=== PATIENT | male | born 1980 | race Caucasian/White ===

== ENCOUNTER 2019-08-17 14:46 | Emergency (ER) | payer MEDICAID ==
[~2019-08-17] VITALS: Ht 188 cm; Wt 76.0 kg
[2019-08-17 14:49] VITALS: BP 158/97
[2019-08-17] MEDS ORDERED: proparacaine 0.5% ophthalmic drops 15ml EACHEYE ONE (16:50)
[2019-08-17] MEDS ORDERED: CIPR2.5D18 LEFTEYE (17:43)
== END 2019-08-17 17:50 | disposition home or self-care (01) ==
LOC: ER 14:47
DX: H57.12 Ocular pain, left eye (principal); Z79.899 Other long term (current) drug therapy
CPT/HCPCS: 99283

== ENCOUNTER 2020-04-20 16:52 | Inpatient (IN) | payer MEDICAID ==
[~2020-04-20] VITALS: Ht 185.4 cm; Wt 89.3 kg
[~2020-04-20 16:52] MED LIST: NORepinephrine 1 mg/ml inj IV ONE; etomidate 2mg/ml inj. ONE; rocuronium 10mg/ml inj IV ONE
[2020-04-20] MEDS ORDERED: normal saline 1000ML IV soln IVB ONE (17:10)
[2020-04-20] MEDS ORDERED: piperacillin/tazo 3.375gm/50ml 50 ML IV ONE (17:10)
--- NOTE | 2020-04-20 17:22 | NUR ---
COOLINGBLANKET FROM ICU ON PT, ICE PACKS TO GROIN AND AXILLA.
--- NOTE | 2020-04-20 17:23 | NUR ---
1656-20 ETOMADATE, 1700-100 ROCC, 8.0 ETT, 26 AT THE TEETH. VENT SETTINGS TV 450, 100%, RATE 18, PEEP 5. LEVOPHED STARTED AT 1715 AT 14.51ML/HR
[2020-04-20 17:31] LABS: ABG HCO3 17.4 mmol/L (22.0-26.0); ABG OXYGEN SATURATION 99.6 % (94-97); ABG PCO2 (T) 47.6 mmHg (35.0-48.0); ALLEN'S TEST POSITIVE; FCOHb 0.5 % (0.0-3.9); FMetHb 0.4 % (0.0-1.5); FO2Hb 98.7 % (94-97); PATIENT TEMPERATURE 41.2; PEEP 5 cm H2O; RESPIRATORY RATE 18 b/min; TIDAL VOLUME 450 mL; TOTAL HEMOGLOBIN 14.8 G/dl (14.0-18.0)
[2020-04-20 17:33] LABS: HEMATOCRIT 47.4 % (42.0-52.0); MONOCYTES # (AUTO) 0.1 X10'3 (0-0.9); NEUTROPHILS # (AUTO) 1.9 X10'3 (1.8-7.7)
[2020-04-20 17:33] LABS: CLARITY,URINE SLIGHTLY CLOUDY (Clear); COLOR,URINE YELLOW (Yellow); GLUCOSE, URINE NEGATIVE (Neg); KETONES,URINE NEGATIVE (Neg); LEUKOCYTE ESTERASE ,URINE NEGATIVE (Neg); NITRITES, URINE NEGATIVE (Neg); OCCULT BLOOD,URINE NEGATIVE (Neg); PH,URINE 6.5 (4.8-8.0); PROTEIN,URINE 30 mg/dl (Neg); UA COLLECTION TYPE FOLEY CATH; UROBILINOGEN,URINE 0.2 E.U/dL (0.2-1.0)
[2020-04-20 17:35] LABS: BASOPHILS % (AUTO) 0.5 % (0-1); EOSINOPHILS # (AUTO) 0.1 X10'3 (0-0.9); EOSINOPHILS % (AUTO) 1.1 % (0-6); HEMOGLOBIN 16.3 g/dl (14.0-17.9); LYMPHOCYTES # (AUTO) 2.9 X10'3 (1.1-4.8); MEAN CORPUSCULAR HEMOGLOBIN 31.6 PG (27.0-31.0); MEAN CORPUSCULAR HGB CONC 34.3 g/dL (33.0-36.5); MEAN CORPUSCULAR VOLUME 91.9 FL (78-98); MEAN PLATELET VOLUME 7.2 FL (7.4-10.4); MONOCYTES % (AUTO) 2.3 % (2-12); NEUTROPHILS % (AUTO) 38.1 % (42-75); PLATELET COUNT 304 X10'3 (140-440); RED BLOOD COUNT 5.16 X10'6 (4.70-6.10); RED CELL DISTRIBUTION WIDTH 13.7 % (11.5-14.5)
[2020-04-20 17:39] LABS: URINE AMPHETAMINE SCREEN POSITIVE (Neg); URINE BARBITUATE SCREEN NEGATIVE (Neg); URINE BENZODIAZEPINES SCREEN NEGATIVE (Neg); URINE CANNABINOID SCREEN POSITIVE (Neg); URINE COCAINE SCREEN NEGATIVE (Neg); URINE METHADONE SCREEN NEGATIVE (Neg); URINE OPIATE SCREEN NEGATIVE (Neg); URINE PHENCYCLIDINE SCREEN NEGATIVE (Neg)
[2020-04-20 17:45] LABS: ALANINE AMINOTRANSFERASE 22 U/L (12-78); ALBUMIN 4.3 G/DL (3.4-5.0); ALKALINE PHOSPHATASE 112 IU/L (46-116); ANION GAP 13 (8-16); ASPARTATE AMINO TRANSFERASE 56 U/L (10-37); BILIRUBIN,TOTAL 0.3 MG/DL (0.1-1.0); BLOOD UREA NITROGEN 17 MG/DL (7-18); BUN/CREATININE RATIO 8.6 (5.4-32.0); CALCIUM 9.4 MG/DL (8.5-10.1); CHLORIDE 107 MMOL/L (99-107); CREATININE 1.98 MG/DL (0.60-1.10); GLUCOSE 80 MG/DL (70-104); POTASSIUM 5.9 MMOL/L (3.5-5.1); SODIUM 143 MMOL/L (135-145); TOTAL CARBON DIOXIDE 22.6 MMOL/L (24-32); TOTAL PROTEIN 8.7 G/DL (6.4-8.2); eGFR 38 ML/MIN
[2020-04-20 17:48] LABS: WBC,URINE 0-4 /HPF (0-4)
[2020-04-20 17:49] LABS: ETHANOL < 0.010 GM/DL (0.0-0.010); TROPONIN I 0.31 NG/ML (0.0-0.05)
[2020-04-20 17:50] LABS: AMORPHOUS URATES 1+; BACTERIA,URINE FEW /HPF (Neg); MUCUS STRANDS FEW /LPF (Neg); SQUAMOUS EPITHELIAL CELL,UR FEW /LPF (FEW); TRANSITIONAL EPI CELLS,URINE FEW /HPF; WBC CLUMPS,URINE FEW /HPF (NEGATIVE)
[2020-04-20] MEDS: NORepinephrine 8mg/ 250ml NS 250 ML IV SCH (17:52)
--- NOTE | 2020-04-20 18:08 | NUR ---
NOTED GASTRIC CONTENTS THROUGH NGT IN SUCTION CANISTER @150ML OF RED WINE COLOR RETURN. MD NOTIFIED. ORDERS TO COLD SALINE LAVAGE THROUGH NGT.
[2020-04-20] MEDS ORDERED: calcium chloride 100 MG/1 ML inj IV ONE (18:25)
[2020-04-20] MEDS: FENTANYL-0.9 % NACL/PF 100 ML IV PRN (18:33)
--- NOTE | 2020-04-20 18:36 | NUR ---
YAZAN CALLED PHONE NUMBER IS [phone]
[2020-04-20] MEDS: midazolam 100mg in NS 100ml 100 ML IV PRN (18:37)
[2020-04-20 18:39] LABS: PARTIAL THROMBOPLASTIN TIME 40 SECONDS (22-32)
[2020-04-20] MEDS ORDERED: ipratropium/albuterol 3ml nebule NEB PRN (18:40)
[2020-04-20] MEDS ORDERED: Neutra Phos packet PO PRN (18:40)
[2020-04-20] MEDS ORDERED: bisacodyl 10mg suppository rectal RC PRN (18:40)
[2020-04-20] MEDS ORDERED: morphine 2 MG/ML inj. syringe IV PRN (18:40)
[2020-04-20] MEDS ORDERED: magnesium Cl slow-release 64mg tablet PO PRN (18:40)
[2020-04-20] MEDS ORDERED: magnesium 2GM in 50ml NS 50 ML IV PRN (18:40)
[2020-04-20] MEDS ORDERED: sodium phosphate inj. 15 MMOL in dextrose 5%-water 250 ML IV PRN (18:40)
[2020-04-20] MEDS ORDERED: LIDOcaine 2% 10ml TOPICAL JELLY (Urojet) TP ONE (18:40)
[2020-04-20] MEDS ORDERED: ondansetron/PF 4mg/2ml inj IV PRN (18:40)
[2020-04-20] MEDS ORDERED: sodium phosphate inj. 30 MMOL in dextrose 5%-water 250 ML IV PRN (18:40)
[2020-04-20] MEDS ORDERED: potassium Cl 20 mEq SR tablet PO PRN ×2 (18:40)
[2020-04-20] MEDS ORDERED: magnesium hydroxide 30ml (MOM) UD suspension PO PRN (18:40)
[2020-04-20] MEDS ORDERED: acetaminophen 325mg tablet PO PRN ×2 (18:40)
[2020-04-20] MEDS ORDERED: magnesium 4gm in 100ml NS 100 ML IV PRN (18:40)
[2020-04-20] MEDS ORDERED: potassium CL 10mEq/100ml bag 100 ML IV PRN ×2 (18:40)
[2020-04-20 18:43] LABS: TOTAL CELLS COUNTED 100
[2020-04-20 18:45] LABS: HYPERSEGMENTED NEUTROPHILS 2+; PLATELET ESTIMATE NORMAL; SMUDGE CELLS 1+
[2020-04-20] MEDS ORDERED: albuterol 2.5 MG/3 ML nebule CONTNEB STA (18:49)
[2020-04-20] MEDS ORDERED: sodium polystyrene sulfonate 15gm/60ml oral suspension PO ONE (18:50)
--- NOTE | 2020-04-20 18:52 | NUR ---
Pt transported to CT scan via gurney with the primary nurse, respiratory therapist and Radiology transport tank technician.
[2020-04-20] MEDS ORDERED: acetaminophen 325mg/10.15ml oral unit dose solution OGT PRN (18:53)
[2020-04-20] MEDS ORDERED: POTASSIUM BICARB 20meq eff tab 20 MEQ TABLET.EFF PO PRN (18:54)
[2020-04-20] MEDS ORDERED: POTASSIUM BICARB 20meq eff tab 20 MEQ TABLET.EFF OGT PRN ×2 (18:55→18:56)
[2020-04-20] MEDS: dextrose 5%-normal saline 1,000 ML IV SCH (19:15)
--- NOTE | 2020-04-20 19:20 | NUR ---
KAYEXELATE ORDERED PO, PT OG TUBE IS CONTINUALLY SUCTIONING SEROSANGINOUS FLUID. ADRIÁN AWARE AND ORDERED KAYEXELATE RECTALLY
[2020-04-20] MEDS ORDERED: ziprasidone IM 20mg inj **IM only IM ONE (19:25)
[2020-04-20] MEDS ORDERED: LORazepam 2 mg/ml vial IM ONE (19:25)
[2020-04-20] MEDS ORDERED: diphenhydrAMINE 50 mg/ml inj IM ONE (19:25)
--- NOTE | 2020-04-20 19:45 | NUR ---
MICK LANGE VERBAL ORDER TO GIVE KAYEXELATE BY NG TUBE
[2020-04-20] MEDS: heparin, porcine 5000 units/ml vial SQ SCH (20:00)
[2020-04-20] MEDS ORDERED: dantrolene 20mg inj IV ONE (20:00)
--- NOTE | 2020-04-20 20:02 | NUR ---
BG 11, REPEAT BG 20. MICK LANGE AWARE AND ORDERED AMP OF D50, GIVEN STAT
--- NOTE | 2020-04-20 20:04 | NUR ---
PT AROUSED AND HEAVING AND BLOODY FLUIDS IN MOUTH. PT MOUTH SUCTIONED AND NG TUBE PLACED ON LOW INTERMITTENT SUCTION. 75 ML OF BRIGHT RED FLUIDS OUT OF NG.
--- NOTE | 2020-04-20 20:15 | NUR ---
I have received report from Safia MAURICE from ED and had the opportunity to ask questions. Room is set up and ready for PT arrival.
[2020-04-20] MEDS: vancomycin/NS 1 GM ADD-VANTAGE 250 ML IV SCH (20:31)
[2020-04-20 20:34] LABS: AMYLASE 407 U/L (25-115); LDL CHOLESTEROL 134 MG/DL (50-100)
[2020-04-20 21:00] VITALS: BP 147/80
[2020-04-20 22:00] VITALS: BP 115/65
[2020-04-20] MEDS ORDERED: dextrose 50%-water 50ml dispensing syringe IV ONE (22:00)
--- NOTE | 2020-04-20 22:00 | NUR ---
PT arrived to unit @ 2044 vis gurboca raton and transferred to ICU bed and placed on bedside monitor. PT is afebrile with temp of 36.8 after being cooled in ED and given Dantrolene. PT has R-IJ that is oozing, pressure drsg placed. Sommer in place draining ann/grey colored urine to gravity. PT intubated and tolerating settings, O2 sat > 97%. PT has abrasion to LT shoulder and hip as well as a contusion to LT lateral chest, Bilat breath sounds auscultated and no crepitus noted. PT also has a spot on his front upper gums that appears to be bleeding. Bed is locked and low. Bilat soft wrist restraints in place ans secure. Will continue to monitor.
[2020-04-20 22:09] LABS: CREATINE KINASE 6927 U/L (39-308); LIPASE 6482 U/L (73-393)
[2020-04-20 23:00] VITALS: BP 102/48
[2020-04-20 23:31] LABS: BASOPHILS % (AUTO) 0.1 % (0-1); EOSINOPHILS % (AUTO) 0.1 % (0-6); HEMATOCRIT 44.3 % (42.0-52.0); HEMOGLOBIN 14.4 g/dl (14.0-17.9); LYMPHOCYTES # (AUTO) 0.9 X10'3 (1.1-4.8); MEAN CORPUSCULAR HEMOGLOBIN 30.3 PG (27.0-31.0); MEAN CORPUSCULAR HGB CONC 32.6 g/dL (33.0-36.5); MEAN CORPUSCULAR VOLUME 92.9 FL (78-98); MEAN PLATELET VOLUME 7.3 FL (7.4-10.4); MONOCYTES # (AUTO) 1.2 X10'3 (0-0.9); MONOCYTES % (AUTO) 8.4 % (2-12); NEUTROPHILS # (AUTO) 12.5 X10'3 (1.8-7.7); NEUTROPHILS % (AUTO) 85.4 % (42-75); PLATELET COUNT 154 X10'3 (140-440); RED BLOOD COUNT 4.77 X10'6 (4.70-6.10); WHITE BLOOD COUNT 14.7 X10'3 (4.5-11.0)
[2020-04-20 23:47] LABS: ALBUMIN 3.3 G/DL (3.4-5.0); ANION GAP 13 (8-16); BLOOD UREA NITROGEN 28 MG/DL (7-18); BUN/CREATININE RATIO 9.7 (5.4-32.0); CALCIUM 7.7 MG/DL (8.5-10.1); CHLORIDE 109 MMOL/L (99-107); CREATININE 2.89 MG/DL (0.60-1.10); GLUCOSE 121 MG/DL (70-104); POTASSIUM 4.3 MMOL/L (3.5-5.1); SODIUM 141 MMOL/L (135-145); TOTAL CARBON DIOXIDE 19.4 MMOL/L (24-32); eGFR 24 ML/MIN
[2020-04-21] VITALS (23 sets, daily range): BP systolic 80–109; BP diastolic 45–67
[2020-04-21 00:39] LABS: MAGNESIUM 2.3 MG/DL (1.5-2.4); PHOSPHORUS 1.6 MG/DL (2.3-4.5)
[2020-04-21 00:40] LABS: PARTIAL THROMBOPLASTIN TIME 87 SECONDS (22-32)
[2020-04-21 00:45] LABS: OXYGEN SATURATION (MIXED VEN) 78.1 % (60-80); PO2 MIXED VENOUS (TEMP COR) 45.8 mmHg (35-46)
[2020-04-21] MEDS: piperacillin/tazo 3.375gm/50ml 50 ML IV SCH ×3 (00:54→15:43)
--- NOTE | 2020-04-21 00:55 | NUR ---
DEEPALI Rodriguez notified d/t receiving critical PTT of 87. Order received to type ans screen PT as well as repeat coags with AM labs. Will continue to monitor.
[2020-04-21 03:41] LABS: EOSINOPHILS % (AUTO) 0.1 % (0-6); LYMPHOCYTES # (AUTO) 0.4 X10'3 (1.1-4.8); MONOCYTES # (AUTO) 0.8 X10'3 (0-0.9)
[2020-04-21 03:43] LABS: BASOPHILS % (AUTO) 0.1 % (0-1); HEMATOCRIT 44.1 % (42.0-52.0); HEMOGLOBIN 14.5 g/dl (14.0-17.9); MEAN CORPUSCULAR HEMOGLOBIN 30.9 PG (27.0-31.0); MEAN CORPUSCULAR HGB CONC 32.9 g/dL (33.0-36.5); MEAN CORPUSCULAR VOLUME 93.9 FL (78-98); MONOCYTES % (AUTO) 6.9 % (2-12); NEUTROPHILS # (AUTO) 9.8 X10'3 (1.8-7.7); NEUTROPHILS % (AUTO) 88.9 % (42-75); PLATELET COUNT 136 X10'3 (140-440); RED CELL DISTRIBUTION WIDTH 13.9 % (11.5-14.5)
[2020-04-21] MEDS: dextrose 5%-normal saline 1,000 ML IV SCH (03:47)
[2020-04-21 04:06] LABS: ABG BASE EXCESS -11.4 mmol/L (-2.0-2.0); ABG HCO3 14.2 mmol/L (22.0-26.0); ABG OXYGEN SATURATION 98.7 % (94-97); ABG PCO2 (T) 32.8 mmHg (35.0-48.0); ABG PO2 (T) 147.9 mmHg (75.0-100.0); ALLEN'S TEST POSITIVE; FCOHb 0.3 % (0.0-3.9); FMetHb 0.2 % (0.0-1.5); FO2Hb 98.2 % (94-97); PATIENT TEMPERATURE 37.7; PEEP 5 cm H2O; RESPIRATORY RATE 18 b/min; TIDAL VOLUME 450 mL; TOTAL HEMOGLOBIN 15.1 G/dl (14.0-18.0)
[2020-04-21 04:13] LABS: PARTIAL THROMBOPLASTIN TIME 89 SECONDS (22-32)
[2020-04-21 04:14] LABS: ALANINE AMINOTRANSFERASE 168 U/L (12-78); ALBUMIN 3.1 G/DL (3.4-5.0); ALKALINE PHOSPHATASE 118 IU/L (46-116); ANION GAP 13 (8-16); ASPARTATE AMINO TRANSFERASE 803 U/L (10-37); BILIRUBIN,TOTAL 0.5 MG/DL (0.1-1.0); BLOOD UREA NITROGEN 34 MG/DL (7-18); BUN/CREATININE RATIO 9.8 (5.4-32.0); CALCIUM 8.1 MG/DL (8.5-10.1); CHLORIDE 108 MMOL/L (99-107); CREATININE 3.46 MG/DL (0.60-1.10); GLUCOSE 107 MG/DL (70-104); POTASSIUM 3.6 MMOL/L (3.5-5.1); SODIUM 141 MMOL/L (135-145); TOTAL CARBON DIOXIDE 20.2 MMOL/L (24-32); TOTAL PROTEIN 6.1 G/DL (6.4-8.2); eGFR 20 ML/MIN
--- NOTE | 2020-04-21 04:35 | NUR ---
SQUAD BOSS Michael called d/t receiving a critical PTT is 87, lab also stated that they were not able to result PT/INR. PT has been type and screened. Also in formed him of critical Phos of 0.9, informed Mcihael that PT does replacement orders but was instructed not to replace and that he would notify the MD general surgeon. No new orders received at this time. Will continue to monitor.
[2020-04-21 04:41] LABS: PHOSPHORUS 0.9 MG/DL (2.3-4.5)
[2020-04-21] MEDS: NORepinephrine 8mg/ 250ml NS 250 ML IV SCH ×2 (04:56→17:33)
--- NOTE | 2020-04-21 05:20 | NUR ---
Received critical Troponin of 9.48. DEEPALI Rodriguez notified. No new orders received at this time.
[2020-04-21 05:21] LABS: TROPONIN I 9.48 NG/ML (0.0-0.05)
[2020-04-21 05:22] LABS: CREATINE KINASE 23111 U/L (39-308)
[2020-04-21] MEDS: FENTANYL-0.9 % NACL/PF 100 ML IV PRN ×2 (05:57→20:02)
--- NOTE | 2020-04-21 06:39 | NUR ---
Problems reprioritized. Patient report given, questions answered & plan of care reviewed with Laine MAURICE.
[2020-04-21] MEDS: vancomycin/NS 1 GM ADD-VANTAGE 250 ML IV SCH (07:50)
[2020-04-21] MEDS: pantoprazole 40 MG vial IV SCH (07:50)
[2020-04-21] MEDS ORDERED: aspirin 325mg tablet PO ONE (08:55)
[2020-04-21] MEDS ORDERED: heparin 25,000 UNIT/250ml bag 250 ML IV SCH (08:56)
[2020-04-21] MEDS: sodium bicarbonate (8.4%) inj. 150 MEQ in dextrose 5%-water 1,000 ML IV SCH ×2 (08:58→17:33)
[2020-04-21] MEDS ORDERED: heparin 10,000 units/1 ML INJ IV ONE (09:00)
[2020-04-21] MEDS ORDERED: heparin 10,000 units/1 ML INJ IV PRN (09:00)
--- NOTE | 2020-04-21 09:00 | NUR ---
Left moris CHAVIS d/c'd per Dr. Calderon.
[2020-04-21 09:15] LABS: AMYLASE 638 U/L (25-115); LDL CHOLESTEROL 116 MG/DL (50-100)
[2020-04-21] MEDS: heparin, porcine 5000 units/ml vial SQ SCH (09:17)
[2020-04-21] MEDS ORDERED: NO HOME MEDS (09:21)
[2020-04-21 09:34] LABS: LIPASE 6036 U/L (73-393)
[2020-04-21] MEDS: midazolam 100mg in NS 100ml 100 ML IV PRN (09:36)
[2020-04-21] MEDS: acetaminophen 325mg/10.15ml oral unit dose solution OGT PRN (10:38)
--- NOTE | 2020-04-21 12:49 | NUR ---
I have reviewed and agree with all medications administered and interventions performed by [facility] Sussy Tan Addendum: 04/21/20 at 1249 by Sveta Billy RT Amended: Links added.
--- NOTE | 2020-04-21 12:54 | NUR ---
Gave tylenol at 1040 for rising temperature of 38.5, temperature did not correct afterwards, actually grey to 38.6. Cooling blanket placed behind patient, Ventilator heater turned off, ice packs applied to groin, neck, and axilla. Patient temperature slowly reducing. Currently 38.4.
--- NOTE | 2020-04-21 13:15 | NUR ---
Tube feeding consult received. Pt intubated, sedated, on pressors. Admitted with acute respiratory failure, sepsis, KATHERINE all per MD note. discussed at critical care rounds that due to elevated pancreatic enzymes (lipase 6036 and amylase 638) will not start feedings today. Recs for tube feedings available however will hold for now. JUAN J discussed with MD to re-evaluate tomorrow since patient intubated, needing some type of nutrition tomorrow whether it be tube feeding or IV nutrition with TPN. Recommendations for both available in RD note. Pt MD note pt appears cachetic looking. Recommend: 1. IF tube feeding, recommend vital AF at 80 ml/hr will provide 1912 ml volume, 2304 cals, 144 gram protein, 1557 ml water. IF TF prealbumin friday and . 2. IF TPN if unable to provide tube feeding would rec to meet patients needs 3:1 clinimix E 02/22 with 100 ml 20% intralipids at 90 ml/hr would provide 2160 ml total volume, 2015 total cals, 1604 non protein cals, 3.69 mg/kg/min CHO loading. IF TPN, prealbumin and TG q friday and . 3. Daily weights. Addendum: 04/21/20 at [address] Amended: Links added.
--- NOTE | 2020-04-21 18:16 | NUR ---
Per patient's , it's OK to share information with patient's mother in [place].
--- NOTE | 2020-04-21 18:18 | NUR ---
Patient in room CICU 2013. I have received report from KAYLENE Jang and had the opportunity to ask questions and assume patient care.
--- NOTE | 2020-04-21 20:16 | NUR ---
Dmitri Rodriguez NP called re: Blood Glucose 69mg/dl via draw from central line. Orders for Hyper/hypoglycemic protocol given.
[2020-04-21] MEDS ORDERED: dextrose ORAL solution 15 GM/59 ML bottle PO PRN ×2 (20:20)
[2020-04-21] MEDS ORDERED: glucagon, human recombinant 1mg kit SUBCUT PRN (20:20)
[2020-04-21] MEDS: dextrose 50%-water 50ml dispensing syringe IV PRN ×2 (20:30→22:16)
[2020-04-22] VITALS (23 sets, daily range): BP systolic 81–120; BP diastolic 42–72
[2020-04-22] MEDS: piperacillin/tazo 3.375gm/50ml 50 ML IV SCH ×3 (00:28→20:33)
[2020-04-22] MEDS: dextrose 50%-water 50ml dispensing syringe IV PRN (00:35)
--- NOTE | 2020-04-22 00:42 | NUR ---
Dmitri Rodriguez NP called re: blood sugar 64 mg/dl. Repeated doses of D50 throughout shift. Made aware of current fluid order of D5 with sodium Bicarb at 125ml/hr. Order for an additional bag of D10 at rate of 30 ml/hr IV.
[2020-04-22] MEDS ORDERED: sodium chloride inj. 154 MEQ in Dextrose 10%-water IV solution 961.5 ML IV SCH (00:45)
[2020-04-22] MEDS: NORepinephrine 8mg/ 250ml NS 250 ML IV SCH ×2 (01:11→19:42)
[2020-04-22] MEDS: Dextrose 10%-water IV solution 1,000 ML IV SCH (01:11)
[2020-04-22 02:51] LABS: AMYLASE 454 U/L (25-115)
[2020-04-22 03:02] LABS: LIPASE 2528 U/L (73-393)
[2020-04-22] MEDS: sodium bicarbonate (8.4%) inj. 150 MEQ in dextrose 5%-water 1,000 ML IV SCH (03:03)
[2020-04-22 03:09] LABS: ALBUMIN 2.2 G/DL (3.4-5.0); ALBUMIN/GLOBULIN RATIO 0.9 (1.1-1.5); ALKALINE PHOSPHATASE 111 IU/L (46-116); ANION GAP 18 (8-16); BILIRUBIN,TOTAL 1.8 MG/DL (0.1-1.0); BLOOD UREA NITROGEN 51 MG/DL (7-18); BUN/CREATININE RATIO 8.5 (5.4-32.0); CHLORIDE 107 MMOL/L (99-107); CREATININE 6.01 MG/DL (0.60-1.10); GLUCOSE 99 MG/DL (70-104); MAGNESIUM 1.7 MG/DL (1.5-2.4); PHOSPHORUS 7.2 MG/DL (2.3-4.5); POTASSIUM 4.4 MMOL/L (3.5-5.1); SODIUM 145 MMOL/L (135-145); TOTAL CARBON DIOXIDE 20.3 MMOL/L (24-32); TOTAL PROTEIN 4.6 G/DL (6.4-8.2); eGFR 11 ML/MIN
[2020-04-22 03:14] LABS: ALANINE AMINOTRANSFERASE 1139 U/L (12-78)
[2020-04-22 03:34] LABS: ASPARTATE AMINO TRANSFERASE 2972 U/L (10-37)
[2020-04-22 03:41] LABS: CALCIUM 5.7 MG/DL (8.5-10.1)
--- NOTE | 2020-04-22 04:00 | NUR ---
Calcium 5.7. Dmitri Rodriguez NP called. Order for 2 gram Calcium Chloride IVPB. Also made aware of increase in BUN and creatine with decreased urine output. No new orders at this time.
[2020-04-22] MEDS ORDERED: calcium chloride inj. 2,000 MG in normal saline 100ml IV soln 80 ML IV ONE (04:05)
[2020-04-22 04:11] LABS: BASOPHILS % (AUTO) 0.1 % (0-1); EOSINOPHILS % (AUTO) 0 % (0-6); HEMOGLOBIN 14.1 g/dl (14.0-17.9); LYMPHOCYTES # (AUTO) 0.4 X10'3 (1.1-4.8); LYMPHOCYTES % (AUTO) 2.1 % (21-51); MEAN CORPUSCULAR HEMOGLOBIN 30.5 PG (27.0-31.0); MEAN CORPUSCULAR HGB CONC 32.8 g/dL (33.0-36.5); MEAN CORPUSCULAR VOLUME 92.9 FL (78-98); MEAN PLATELET VOLUME 7.8 FL (7.4-10.4); MONOCYTES # (AUTO) 0.2 X10'3 (0-0.9); MONOCYTES % (AUTO) 0.8 % (2-12); NEUTROPHILS # (AUTO) 19.8 X10'3 (1.8-7.7); RED BLOOD COUNT 4.63 X10'6 (4.70-6.10); WHITE BLOOD COUNT 20.4 X10'3 (4.5-11.0)
[2020-04-22 04:18] LABS: PLATELET COUNT 32 X10'3 (140-440)
--- NOTE | 2020-04-22 04:25 | NUR ---
Critical Platelet Count of 32. C. DEEPALI Rodriguez called. Order for repeat Hemogram at 1200 today.
[2020-04-22 05:21] LABS: ABG BASE EXCESS -7.6 mmol/L (-2.0-2.0); ABG HCO3 18.8 mmol/L (22.0-26.0); ABG OXYGEN SATURATION 97.1 % (94-97); ABG PCO2 (T) 40.1 mmHg (35.0-48.0); ABG PO2 (T) 88.1 mmHg (75.0-100.0); ALLEN'S TEST POSITIVE; FCOHb 0.1 % (0.0-3.9); FMetHb 0.2 % (0.0-1.5); FO2Hb 96.8 % (94-97); PATIENT TEMPERATURE 36.3; PEEP 5 cm H2O; RESPIRATORY RATE 18 b/min; TIDAL VOLUME 450 mL; TOTAL HEMOGLOBIN 14.8 G/dl (14.0-18.0)
[2020-04-22 05:47] LABS: PLATELET ESTIMATE DECREASED; TOTAL CELLS COUNTED 100
--- NOTE | 2020-04-22 05:49 | NUR ---
Sedation vacation from 0200 to current time. Patient remains unresponsive. Deep sedation. Throughout shift patient had multiple bowel movements of liquid stool, brown to dark red in color.
--- NOTE | 2020-04-22 06:20 | NUR ---
Problems reprioritized. Patient report given, questions answered & plan of care reviewed with KAYLENE Jang.
[2020-04-22] MEDS ORDERED: vancomycin/NS 1 GM ADD-VANTAGE 250 ML IV PRN (06:50)
[2020-04-22] MEDS: pantoprazole 40 MG vial IV SCH (07:03)
[2020-04-22] MEDS ORDERED: vancomycin/NS 1 GM ADD-VANTAGE 250 ML IV SCH (08:00)
[2020-04-22] MEDS: aspirin 325mg tablet PO SCH (09:44)
[2020-04-22] MEDS ORDERED: epoetin 20,000 units/ml inj IV ONE (10:35)
[2020-04-22] MEDS ORDERED: albumin (human) 25% 100ml IV 100 ML IV PRN (10:35)
[2020-04-22] MEDS ORDERED: heparin 1,000 units/ml 10ml inj HE ONE ×2 (10:40)
[2020-04-22 13:15] LABS: HEMATOCRIT 40.9 % (42.0-52.0); HEMOGLOBIN 13.5 g/dl (14.0-17.9); MEAN CORPUSCULAR HEMOGLOBIN 30.7 PG (27.0-31.0); MEAN CORPUSCULAR HGB CONC 33.1 g/dL (33.0-36.5); MEAN PLATELET VOLUME 9.9 FL (7.4-10.4); RED CELL DISTRIBUTION WIDTH 14.3 % (11.5-14.5); WHITE BLOOD COUNT 19.3 X10'3 (4.5-11.0)
[2020-04-22 13:20] LABS: PLATELET COUNT 33 X10'3 (140-440)
--- NOTE | 2020-04-22 14:46 | NUR ---
F/u: Lipase is trending towards normal limits, down to 2528 today. Noted that pt documented to have received EN during surgeon assistant. D/w RN who reports pt did receive EN over night however once this was observed by day shift EN was turned off and OG tube changed to suctioned. Per RN pt not starting any alternative nutrition at this time. Diet order changed to NPO. Per notes pt to start dialysis. Estimated nutrient needs remain the same as they will provide additional protein needed to meet the demands of dialysis. Will continue to follow closely. Addendum: 04/22/20 at [address] Amended: Links added.
[2020-04-22] MEDS ORDERED: albumin (human) 25% 100 ML IV solution IV ONE (16:20)
--- NOTE | 2020-04-22 18:15 | NUR ---
Patient in room CICU 2012. I have received report from KAYLENE Jang and had the opportunity to ask questions and assume patient care. Patient in room with [employer] field artillery targeting technician at bedside, Dialysis in progress. Patient is unresponsive, intubated and on the ventilator FiO2 30%. Sedation turned off at this time. Fentanyl for pain control infusing per MD orders, Levophed and D10 infusing per MD orders, see IV spread sheet for rate.
[2020-04-22] MEDS: lactobacillus rhamnosus 10,000 MMU CELLS/CAPSULE PO SCH (20:00)
[2020-04-22] MEDS: mineral oil/petrolatum ophthal oint EACHEYE PRN (22:40)
[2020-04-23] VITALS (23 sets, daily range): BP systolic 97–124; BP diastolic 43–68
--- NOTE | 2020-04-23 00:20 | NUR ---
Patient opens eyes to pain, facial grimace present during repositioning and bed bath. Patient does not follow commands or track with his eyes. During log roll to change out linen under patient patient with resistance to upper extremities, increased respiratory rate to the 30's. Versed bolus of 2 mg administered and Versed drip restarted at 2 mg/hr. Patient responded well and appears more comfortable after medication bolus.
[2020-04-23] MEDS: dextrose 50%-water 50ml dispensing syringe IV PRN ×6 (02:12→19:06)
[2020-04-23] MEDS: midazolam 100mg in NS 100ml 100 ML IV PRN (02:32)
--- NOTE | 2020-04-23 02:37 | NUR ---
0200 blood glucose 43 mg/dL. D50 administered. Patient repositioned, during repositioning patient with goose bumps only present on the left side of his body. Patient eyes opened during repositioning, patient with right upward gaze, no tracking present. Patient with slight twitching to left arm noted by nursing staff. 2 mg Versed bolus administered. Re check of Blood glucose, 131mg/dL. will continue to monitor. Patient with continuous infusion of D10 at 30ml/hr per provider order.
[2020-04-23 02:46] LABS: ALANINE AMINOTRANSFERASE 2535 U/L (12-78); ALBUMIN 2.9 G/DL (3.4-5.0); ALKALINE PHOSPHATASE 96 IU/L (46-116); AMYLASE 190 U/L (25-115); ANION GAP 15 (8-16); BILIRUBIN,TOTAL 5.2 MG/DL (0.1-1.0); BLOOD UREA NITROGEN 38 MG/DL (7-18); BUN/CREATININE RATIO 6.7 (5.4-32.0); CALCIUM 6.4 MG/DL (8.5-10.1); CHLORIDE 103 MMOL/L (99-107); CREATININE 5.65 MG/DL (0.60-1.10); LIPASE 782 U/L (73-393); MAGNESIUM 1.5 MG/DL (1.5-2.4); POTASSIUM 4.9 MMOL/L (3.5-5.1); SODIUM 141 MMOL/L (135-145); TOTAL CARBON DIOXIDE 23.1 MMOL/L (24-32); eGFR 11 ML/MIN
[2020-04-23 03:07] LABS: ALBUMIN/GLOBULIN RATIO 2.1 (1.1-1.5); PHOSPHORUS 6.8 MG/DL (2.3-4.5); TOTAL PROTEIN 4.3 G/DL (6.4-8.2)
[2020-04-23 03:14] LABS: BASOPHILS % (AUTO) 0.1 % (0-1); EOSINOPHILS # (AUTO) 0.1 X10'3 (0-0.9); EOSINOPHILS % (AUTO) 0.7 % (0-6); HEMATOCRIT 33.5 % (42.0-52.0); HEMOGLOBIN 11.1 g/dl (14.0-17.9); LYMPHOCYTES # (AUTO) 0.6 X10'3 (1.1-4.8); LYMPHOCYTES % (AUTO) 3.5 % (21-51); MEAN CORPUSCULAR HEMOGLOBIN 30.8 PG (27.0-31.0); MEAN CORPUSCULAR HGB CONC 33.2 g/dL (33.0-36.5); MEAN CORPUSCULAR VOLUME 92.9 FL (78-98); MEAN PLATELET VOLUME 10.1 FL (7.4-10.4); MONOCYTES # (AUTO) 0.2 X10'3 (0-0.9); MONOCYTES % (AUTO) 1.4 % (2-12); NEUTROPHILS # (AUTO) 17.1 X10'3 (1.8-7.7); NEUTROPHILS % (AUTO) 94.3 % (42-75); RED BLOOD COUNT 3.61 X10'6 (4.70-6.10); RED CELL DISTRIBUTION WIDTH 14.4 % (11.5-14.5); WHITE BLOOD COUNT 18.1 X10'3 (4.5-11.0)
[2020-04-23 03:15] LABS: GLUCOSE 49 MG/DL (70-104)
[2020-04-23 03:22] LABS: ASPARTATE AMINO TRANSFERASE 5243 U/L (10-37)
[2020-04-23 03:30] LABS: ABG BASE EXCESS -7.3 mmol/L (-2.0-2.0); ABG HCO3 18.8 mmol/L (22.0-26.0); ABG OXYGEN SATURATION 97.6 % (94-97); ABG PCO2 (T) 38.6 mmHg (35.0-48.0); ABG PO2 (T) 109.7 mmHg (75.0-100.0); ALLEN'S TEST POSITIVE; FCOHb 0.3 % (0.0-3.9); FO2Hb 97.3 % (94-97); PATIENT TEMPERATURE 36.3; PEEP 5 cm H2O; RESPIRATORY RATE 18 b/min; TIDAL VOLUME 450 mL; TOTAL HEMOGLOBIN 11.6 G/dl (14.0-18.0)
[2020-04-23 04:09] LABS: PLATELET COUNT 35 X10'3 (140-440)
[2020-04-23] MEDS: NORepinephrine 8mg/ 250ml NS 250 ML IV SCH ×2 (04:15→14:27)
[2020-04-23] MEDS: FENTANYL-0.9 % NACL/PF 100 ML IV PRN (04:19)
[2020-04-23] MEDS: mineral oil/petrolatum ophthal oint EACHEYE PRN (04:24)
--- NOTE | 2020-04-23 04:30 | NUR ---
Dmitri Rodriguez NP notified of patients critical Platelet count of 35. No new orders. Also notified of patients blood glucose of 43 earlier this morning. Patient currently on D10 W at 30 ml/hr. No new orders at this time. Advised to continue to monitor blood glucose and treat per protocol.
--- NOTE | 2020-04-23 05:50 | NUR ---
Blood glucose reassessed 73 mg/dL.
--- NOTE | 2020-04-23 06:30 | NUR ---
Received report from KAYLENE Mena
--- NOTE | 2020-04-23 06:38 | NUR ---
Problems reprioritized. Patient report given, questions answered & plan of care reviewed with KAYLENE Clifton.
[2020-04-23] MEDS: aspirin 325mg tablet PO SCH (07:46)
[2020-04-23] MEDS: piperacillin/tazo 3.375gm/50ml 50 ML IV SCH ×2 (07:46→20:17)
[2020-04-23] MEDS: lactobacillus rhamnosus 10,000 MMU CELLS/CAPSULE PO SCH ×2 (07:46→20:17)
[2020-04-23] MEDS: Dextrose 10%-water IV solution 1,000 ML IV SCH (07:47)
[2020-04-23] MEDS: pantoprazole 40 MG vial IV SCH (08:00)
[2020-04-23] MEDS ORDERED: vancomycin/NS 1 GM ADD-VANTAGE 250 ML X 1 DOSE IV ONE (09:00)
--- NOTE | 2020-04-23 12:11 | NUR ---
TF Consult: Pt lipase down to 782 and amylase down to 190 w/ Low Glu this AM s/p dex. OGTF to start today per binder stripper machine. MAP 69 this AM. LBM 04/22. EN recs below given pt needs given DX sepsis, meth-induced multi-organ failure, intubation, EF 20%, and on HD for rhabdomyolysis per EMR. Will monitor for tolerance. Consider post-pyloric feeds if pancreatic enzymes increase following EN. Recommend: 1. OGTF using vital AF at 80 ml/hr will provide 1912 ml volume, 2304 cals, 144 gram protein, 1557 ml free water. 2. additional water flush 200ml Q4 3. PALB Q /; Daily weights 4. routine bowel care 5. upon extubation; advance diet as medically indicated to heart healthy Addendum: 04/23/20 at [address] Amended: Links added.
--- NOTE | 2020-04-23 18:20 | NUR ---
Patient in room CICU 2013. I have received report from KAYLENE Clifton and had the opportunity to ask questions and assume patient care.
--- NOTE | 2020-04-23 18:41 | NUR ---
Report given to KAYLENE Mena
--- NOTE | 2020-04-23 19:10 | NUR ---
Patient's called for update. Would like a phone call from the MD to discuss MRI and EEG results. Gave more in formation as to how patient was found down. Per his : he was found down at a neighbors house lodged between the toilet and the tub. Patients denied any recent injuries or fall that she is aware of. She will continue to be the main contact for the family.
--- NOTE | 2020-04-23 19:33 | NUR ---
Dmitri Rodriguez NP notified of patients continued low blood glucose readings. informed that patient has been covered with Dextrose 50% 25 ml twice in the last 2 hours. Patient was started on Tube feeding today and is currently at 20 ml/hr. Goal is 80 ml/hr. ORDER: Increased D10 W to make up the difference of the rate of tube feed goal and step the rate of infusion of D10 down as the tube feeding is increased.
[2020-04-24] VITALS (24 sets, daily range): BP systolic 83–134; BP diastolic 42–71
[2020-04-24] MEDS: NORepinephrine 8mg/ 250ml NS 250 ML IV SCH ×2 (00:05→14:11)
[2020-04-24] MEDS: FENTANYL-0.9 % NACL/PF 100 ML IV PRN (00:06)
--- NOTE | 2020-04-24 00:30 | NUR ---
Tube feed residual 500mL per Tube feeding policy 300 mL returned and Tube feeing was resumed. To be rechecked in one hour.
--- NOTE | 2020-04-24 01:25 | NUR ---
Dmitri Rodriguez NP at bedside. Patient continues to have progressive fine twitching with goosebumps that starts on the left side of patients neck and progresses downward and across to right side. Most of the time the twitching will start on the left side of his body. During these episodes patient has a change of color to white non blanchable skin to his hands, arms, knees and at times his face. The color change appears to go away after muscle twitching episodes stop. This color change is increased during any type of tactile stimuli. Patient with Right upward gaze with eyes bilaterally. Versed boluses being administered as ordered. No new orders at this time.
--- NOTE | 2020-04-24 02:00 | NUR ---
Tube Feed residuals 350 mL, Tube Feeding policy followed.
[2020-04-24] MEDS: dextrose 50%-water 50ml dispensing syringe IV PRN ×3 (02:49→20:43)
[2020-04-24 03:33] LABS: BASOPHILS # (AUTO) 0.1 X10'3 (0-0.2); BASOPHILS % (AUTO) 0.6 % (0-1); EOSINOPHILS # (AUTO) 0.1 X10'3 (0-0.9); EOSINOPHILS % (AUTO) 1.1 % (0-6); HEMATOCRIT 32.7 % (42.0-52.0); HEMOGLOBIN 10.8 g/dl (14.0-17.9); LYMPHOCYTES # (AUTO) 0.6 X10'3 (1.1-4.8); LYMPHOCYTES % (AUTO) 5.1 % (21-51); MEAN CORPUSCULAR VOLUME 93.8 FL (78-98); MEAN PLATELET VOLUME 8.8 FL (7.4-10.4); MONOCYTES # (AUTO) 0.4 X10'3 (0-0.9); MONOCYTES % (AUTO) 3.1 % (2-12); NEUTROPHILS # (AUTO) 10.9 X10'3 (1.8-7.7); NEUTROPHILS % (AUTO) 90.1 % (42-75); RED BLOOD COUNT 3.48 X10'6 (4.70-6.10); RED CELL DISTRIBUTION WIDTH 14.8 % (11.5-14.5); WHITE BLOOD COUNT 12.2 X10'3 (4.5-11.0)
[2020-04-24 03:40] LABS: PLATELET COUNT 35 X10'3 (140-440)
[2020-04-24 03:41] LABS: ABG BASE EXCESS -5.7 mmol/L (-2.0-2.0); ABG HCO3 20.3 mmol/L (22.0-26.0); ABG OXYGEN SATURATION 96.4 % (94-97); ABG PCO2 (T) 41.4 mmHg (35.0-48.0); ABG PO2 (T) 91.9 mmHg (75.0-100.0); ALLEN'S TEST POSITIVE; FCOHb 0.1 % (0.0-3.9); FO2Hb 96.3 % (94-97); PATIENT TEMPERATURE 36.6; PEEP 5 cm H2O; TOTAL HEMOGLOBIN 11.3 G/dl (14.0-18.0)
[2020-04-24 04:01] LABS: ALBUMIN 2.4 G/DL (3.4-5.0); ALKALINE PHOSPHATASE 113 IU/L (46-116); ANION GAP 13 (8-16); BILIRUBIN,TOTAL 7.4 MG/DL (0.1-1.0); BLOOD UREA NITROGEN 56 MG/DL (7-18); BUN/CREATININE RATIO 7.1 (5.4-32.0); CALCIUM 6.3 MG/DL (8.5-10.1); CHLORIDE 101 MMOL/L (99-107); CREATININE 7.94 MG/DL (0.60-1.10); GLUCOSE 66 MG/DL (70-104); MAGNESIUM 1.6 MG/DL (1.5-2.4); POTASSIUM 4.5 MMOL/L (3.5-5.1); PREALBUMIN 12.8 MG/DL (19-36); SODIUM 139 MMOL/L (135-145); TOTAL CARBON DIOXIDE 24.8 MMOL/L (24-32); VANCOMYCIN,RANDOM 26.4 UG/ML; eGFR 8 ML/MIN
[2020-04-24] MEDS ORDERED: gelatin sponge, absorbable (Gelfoam 100) sponge TP ONE (04:40)
[2020-04-24] MEDS: mineral oil/petrolatum ophthal oint EACHEYE SCH ×4 (05:06→19:51)
[2020-04-24 05:35] LABS: ALANINE AMINOTRANSFERASE 2726 U/L (12-78); ALBUMIN/GLOBULIN RATIO 1.4 (1.1-1.5); PHOSPHORUS 7.6 MG/DL (2.3-4.5); TOTAL PROTEIN 4.1 G/DL (6.4-8.2)
[2020-04-24 06:01] LABS: ASPARTATE AMINO TRANSFERASE 3816 U/L (10-37)
--- NOTE | 2020-04-24 06:15 | NUR ---
Problems reprioritized. Patient report given, questions answered & plan of care reviewed with KAYLENE Clifton.
--- NOTE | 2020-04-24 06:40 | NUR ---
Received report from KAYLENE Mena
[2020-04-24] MEDS ORDERED: VANCOMYCIN LEVEL IV ONE (07:30)
[2020-04-24] MEDS: midazolam 100mg in NS 100ml 100 ML IV PRN ×2 (08:15→23:03)
[2020-04-24] MEDS: piperacillin/tazo 3.375gm/50ml 50 ML IV SCH ×2 (08:16→19:51)
[2020-04-24] MEDS: lactobacillus rhamnosus 10,000 MMU CELLS/CAPSULE PO SCH ×2 (08:16→19:51)
[2020-04-24] MEDS: pantoprazole 40 MG vial IV SCH (08:16)
[2020-04-24] MEDS: Dextrose 10%-water IV solution 1,000 ML IV SCH ×2 (08:16→22:35)
[2020-04-24] MEDS: aspirin 325mg tablet PO SCH (08:16)
--- NOTE | 2020-04-24 08:30 | NUR ---
TF residual 560 mL, TF turned off. Increased D10 to 80 mL/hr per doctor's order.
[2020-04-24 08:39] LABS: AMYLASE 128 U/L (25-115); LIPASE 1380 U/L (73-393)
[2020-04-24] MEDS ORDERED: normal saline 1000ml 100 ML IV PRN (08:43)
[2020-04-24] MEDS ORDERED: albumin (human) 25% 100ml IV 100 ML IV PRN (08:45)
[2020-04-24] MEDS ORDERED: heparin 1,000 units/ml 10ml inj HE ONE ×2 (08:50)
--- NOTE | 2020-04-24 18:30 | NUR ---
Patient in room CICU 2013. I have received report from KAYLENE Clifton and had the opportunity to ask questions and assume patient care.
[2020-04-25] VITALS (24 sets, daily range): BP systolic 104–148; BP diastolic 40–76
[2020-04-25] MEDS: mineral oil/petrolatum ophthal oint EACHEYE SCH ×4 (02:36→20:12)
[2020-04-25] MEDS: VANCOMYCIN LEVEL IV SCH (03:00)
[2020-04-25 03:53] LABS: EOSINOPHILS # (AUTO) 0.1 X10'3 (0-0.9); HEMOGLOBIN 10.2 g/dl (14.0-17.9); LYMPHOCYTES # (AUTO) 0.5 X10'3 (1.1-4.8)
[2020-04-25 03:54] LABS: BASOPHILS % (AUTO) 0.7 % (0-1); EOSINOPHILS % (AUTO) 1.9 % (0-6); HEMATOCRIT 30.4 % (42.0-52.0); LYMPHOCYTES % (AUTO) 8.6 % (21-51); MEAN CORPUSCULAR HEMOGLOBIN 31.1 PG (27.0-31.0); MEAN CORPUSCULAR HGB CONC 33.5 g/dL (33.0-36.5); MEAN CORPUSCULAR VOLUME 92.8 FL (78-98); MEAN PLATELET VOLUME 8.8 FL (7.4-10.4); MONOCYTES # (AUTO) 0.4 X10'3 (0-0.9); MONOCYTES % (AUTO) 6.6 % (2-12); NEUTROPHILS # (AUTO) 4.9 X10'3 (1.8-7.7); NEUTROPHILS % (AUTO) 82.2 % (42-75); RED BLOOD COUNT 3.28 X10'6 (4.70-6.10); RED CELL DISTRIBUTION WIDTH 14.4 % (11.5-14.5)
[2020-04-25 03:58] LABS: PLATELET COUNT 35 X10'3 (140-440)
[2020-04-25 04:26] LABS: ALBUMIN 2.1 G/DL (3.4-5.0); ALKALINE PHOSPHATASE 118 IU/L (46-116); AMYLASE 125 U/L (25-115); ANION GAP 10 (8-16); BILIRUBIN,TOTAL 9.8 MG/DL (0.1-1.0); BLOOD UREA NITROGEN 42 MG/DL (7-18); BUN/CREATININE RATIO 6.4 (5.4-32.0); CALCIUM 6.8 MG/DL (8.5-10.1); CHLORIDE 100 MMOL/L (99-107); CREATININE 6.55 MG/DL (0.60-1.10); GLUCOSE 106 MG/DL (70-104); MAGNESIUM 1.9 MG/DL (1.5-2.4); POTASSIUM 4.2 MMOL/L (3.5-5.1); SODIUM 136 MMOL/L (135-145); TOTAL CARBON DIOXIDE 26.4 MMOL/L (24-32); eGFR 10 ML/MIN
[2020-04-25 04:46] LABS: ALANINE AMINOTRANSFERASE 2177 U/L (12-78); ASPARTATE AMINO TRANSFERASE 2348 U/L (10-37); LIPASE 1800 U/L (73-393); PHOSPHORUS 6.1 MG/DL (2.3-4.5)
[2020-04-25 04:49] LABS: ALBUMIN/GLOBULIN RATIO 1.1 (1.1-1.5)
[2020-04-25 05:01] LABS: ABG HCO3 21.8 mmol/L (22.0-26.0); ABG OXYGEN SATURATION 93.6 % (94-97); ABG PCO2 (T) 42.5 mmHg (35.0-48.0); ABG PO2 (T) 76.3 mmHg (75.0-100.0); ALLEN'S TEST POSITIVE; FCOHb 0.3 % (0.0-3.9); FMetHb 0.3 % (0.0-1.5); PEEP 5 cm H2O; RESPIRATORY RATE 18 b/min; TIDAL VOLUME 450 mL; TOTAL HEMOGLOBIN 11.1 G/dl (14.0-18.0)
[2020-04-25] MEDS: piperacillin/tazo 3.375gm/50ml 50 ML IV SCH ×2 (08:23→20:12)
[2020-04-25] MEDS: lactobacillus rhamnosus 10,000 MMU CELLS/CAPSULE PO SCH ×2 (08:24→20:12)
[2020-04-25] MEDS: aspirin 325mg tablet PO SCH (08:24)
[2020-04-25] MEDS: pantoprazole 40 MG vial IV SCH (08:24)
[2020-04-25] MEDS ORDERED: magnesium hydroxide 30ml (MOM) UD suspension OGT PRN (08:35)
[2020-04-25] MEDS ORDERED: dextrose ORAL solution 15 GM/59 ML bottle OGT PRN ×2 (08:50)
[2020-04-25] MEDS: NORepinephrine 8mg/ 250ml NS 250 ML IV SCH (09:54)
[2020-04-25] MEDS: FENTANYL-0.9 % NACL/PF 100 ML IV PRN (09:55)
--- NOTE | 2020-04-25 12:27 | NUR ---
Daniel trigger. Daniel is low, 8, skin is intact. High residuals in the night up to 640 ml, pt having routine bowel movements. Receiving fentanyl. Per RN at rounds pt is unresponsive, fixed pupils, tube feeding now at 20 ml/hr. Not receiving prokinetic, however a prokinetic such as reglan may be contraindicated in the setting of neurological dysfunction. Receiving HD. Recommend: 1. OGTF using vital AF at 80 ml/hr will provide 1912 ml volume, 2304 cals, 144 gram protein, 1557 ml free water. Advance toward goal rate as tolerated. 2. additional water flush 200ml Q4 3. PALB Q /; Daily weights 4. routine bowel care Addendum: 04/25/20 at [address] Amended: Links added.
[2020-04-25] MEDS ORDERED: chlorproMAZINE 25mg tablet OGT ONE (12:30)
--- NOTE | 2020-04-25 18:30 | NUR ---
Patient in room CICU 2013. I have received report from Ying MAURICE, and had the opportunity to ask questions and assume patient care.
[2020-04-25] MEDS: dextrose 50%-water 50ml dispensing syringe IV PRN (20:29)
--- NOTE | 2020-04-25 21:00 | NUR ---
At the 1999 residual check, PT's gastric residuals were 725ml. 300ml returned and 425 discarded per policy. TF is on hold for 2 hrs and will recheck residuals per policy. PT also had a critical blood sugar of 44 @ 2025, 1 amp of D50 given, recheck of blood sugar @ 2054 resulted 130. Will continue to monitor.
[2020-04-25] MEDS: midazolam 100mg in NS 100ml 100 ML IV PRN (22:32)
--- NOTE | 2020-04-25 22:37 | NUR ---
DEEPALI Rodriguez called D/T PT's blood sugar trending down. Order received to increase D10 from 30ml/hr to 50mL/hr. Versed also turned back on d/t PT continuously having muscle spasms. Will continue to monitor.
[2020-04-26] VITALS (24 sets, daily range): BP systolic 90–126; BP diastolic 46–68
--- NOTE | 2020-04-26 00:26 | NUR ---
Gastric residuals continue to be greater than 300ml, 0000 check resulted 375ml. TF continues to be on hold per policy. Will recheck and continue to monitor.
--- NOTE | 2020-04-26 01:24 | NUR ---
Zachariah from [employer] [facility] called for an update on PT status. Stated they would continue to follow.
[2020-04-26] MEDS: mineral oil/petrolatum ophthal oint EACHEYE SCH ×4 (02:29→19:40)
[2020-04-26] MEDS: dextrose 50%-water 50ml dispensing syringe IV PRN ×5 (02:29→19:37)
--- NOTE | 2020-04-26 02:30 | NUR ---
Blood sugar 68, 25ml PRN D50 given. Will continue to monitor.
[2020-04-26 02:52] LABS: BASOPHILS % (AUTO) 0.5 % (0-1); EOSINOPHILS # (AUTO) 0.1 X10'3 (0-0.9); EOSINOPHILS % (AUTO) 1.5 % (0-6); HEMATOCRIT 27.7 % (42.0-52.0); HEMOGLOBIN 9.3 g/dl (14.0-17.9); LYMPHOCYTES # (AUTO) 0.3 X10'3 (1.1-4.8); LYMPHOCYTES % (AUTO) 5.6 % (21-51); MEAN CORPUSCULAR HEMOGLOBIN 30.8 PG (27.0-31.0); MEAN CORPUSCULAR HGB CONC 33.5 g/dL (33.0-36.5); MEAN CORPUSCULAR VOLUME 91.9 FL (78-98); MEAN PLATELET VOLUME 8.9 FL (7.4-10.4); MONOCYTES # (AUTO) 0.3 X10'3 (0-0.9); MONOCYTES % (AUTO) 6.2 % (2-12); NEUTROPHILS # (AUTO) 4.6 X10'3 (1.8-7.7); NEUTROPHILS % (AUTO) 86.2 % (42-75); RED BLOOD COUNT 3.02 X10'6 (4.70-6.10); RED CELL DISTRIBUTION WIDTH 14.8 % (11.5-14.5); WHITE BLOOD COUNT 5.3 X10'3 (4.5-11.0)
[2020-04-26 02:55] LABS: PLATELET COUNT 35 X10'3 (140-440)
[2020-04-26] MEDS: VANCOMYCIN LEVEL IV SCH (03:00)
[2020-04-26 03:15] LABS: ALKALINE PHOSPHATASE 124 IU/L (46-116); AMYLASE 128 U/L (25-115); ANION GAP 10 (8-16); ASPARTATE AMINO TRANSFERASE 990 U/L (10-37); BLOOD UREA NITROGEN 66 MG/DL (7-18); BUN/CREATININE RATIO 7.6 (5.4-32.0); CALCIUM 6.7 MG/DL (8.5-10.1); CHLORIDE 100 MMOL/L (99-107); CREATININE 8.68 MG/DL (0.60-1.10); GLUCOSE 69 MG/DL (70-104); LIPASE 1429 U/L (73-393); MAGNESIUM 2.2 MG/DL (1.5-2.4); POTASSIUM 4.6 MMOL/L (3.5-5.1); SODIUM 134 MMOL/L (135-145); TOTAL CARBON DIOXIDE 23.6 MMOL/L (24-32); VANCOMYCIN,RANDOM 14.7 UG/ML; eGFR 7 ML/MIN
[2020-04-26 03:16] LABS: ALANINE AMINOTRANSFERASE 1438 U/L (12-78); PHOSPHORUS 7.6 MG/DL (2.3-4.5)
--- NOTE | 2020-04-26 04:33 | NUR ---
Gastric residuals continue to be high, 0400 check resulted 425. TF continues to be on hold. Blood sugar was 64, 25ml PRN D50 given. Will continue to monitor.
[2020-04-26 04:35] LABS: ABG BASE EXCESS -4.5 mmol/L (-2.0-2.0); ABG HCO3 19.9 mmol/L (22.0-26.0); ABG OXYGEN SATURATION 97.2 % (94-97); ABG PCO2 (T) 34.3 mmHg (35.0-48.0); ABG PO2 (T) 106.8 mmHg (75.0-100.0); ALLEN'S TEST POSITIVE; FCOHb 0.3 % (0.0-3.9); FMetHb 0.3 % (0.0-1.5); FO2Hb 96.6 % (94-97); PATIENT TEMPERATURE 37.3; PEEP 5 cm H2O; RESPIRATORY RATE 18 b/min; TIDAL VOLUME 450 mL; TOTAL HEMOGLOBIN 9.5 G/dl (14.0-18.0)
[2020-04-26] MEDS: Dextrose 10%-water IV solution 1,000 ML IV SCH ×2 (06:09→19:24)
--- NOTE | 2020-04-26 06:10 | NUR ---
PT blood sugar was 65, 25ml D50 given PRN. Will continue to monitor.
--- NOTE | 2020-04-26 06:34 | NUR ---
Problems reprioritized. Patient report given, questions answered & plan of care reviewed with Donna MAURICE.
[2020-04-26] MEDS ORDERED: epoetin 20,000 units/ml inj IV ONE (08:35)
[2020-04-26] MEDS ORDERED: albumin (human) 25% 100ml IV 100 ML IV PRN (08:35)
[2020-04-26] MEDS: pantoprazole 40 MG vial IV SCH (08:37)
[2020-04-26] MEDS: lactobacillus rhamnosus 10,000 MMU CELLS/CAPSULE PO SCH (08:37)
[2020-04-26] MEDS: aspirin 325mg tablet OGT SCH (08:38)
[2020-04-26] MEDS: vancomycin/NS 1 GM ADD-VANTAGE 250 ML IV ONE ×2 (08:38→09:00)
[2020-04-26] MEDS ORDERED: heparin 1,000 units/ml 10ml inj HE ONE ×2 (08:40)
[2020-04-26 09:29] LABS: HBSAG SCREEN Negative (Negative)
[2020-04-26] MEDS: levoFLOXACIN-Levaquin 250mg/D5 50 ML IV SCH (12:46)
[2020-04-26] MEDS: FENTANYL-0.9 % NACL/PF 100 ML IV PRN (14:34)
[2020-04-26] MEDS: midazolam 100mg in NS 100ml 100 ML IV PRN (18:08)
--- NOTE | 2020-04-26 18:47 | NUR ---
Patient in room CICU 2013. I have received report from Donna MAURICE, and had the opportunity to ask questions and assume patient care.
--- NOTE | 2020-04-26 19:41 | NUR ---
PT had blood sugar of 60, 25ml D50 given. Will recheck and continue to monitor.
[2020-04-27] VITALS (23 sets, daily range): BP systolic 106–124; BP diastolic 47–78
[2020-04-27] MEDS: mineral oil/petrolatum ophthal oint EACHEYE SCH ×4 (01:46→19:15)
[2020-04-27] MEDS: NORepinephrine 8mg/ 250ml NS 250 ML IV SCH (01:54)
[2020-04-27 03:12] LABS: BASOPHILS % (AUTO) 0.3 % (0-1); EOSINOPHILS # (AUTO) 0.1 X10'3 (0-0.9); EOSINOPHILS % (AUTO) 1.2 % (0-6); HEMATOCRIT 24.6 % (42.0-52.0); HEMOGLOBIN 8.4 g/dl (14.0-17.9); LYMPHOCYTES # (AUTO) 0.5 X10'3 (1.1-4.8); LYMPHOCYTES % (AUTO) 6.8 % (21-51); MEAN CORPUSCULAR HEMOGLOBIN 31.2 PG (27.0-31.0); MEAN CORPUSCULAR HGB CONC 34.2 g/dL (33.0-36.5); MEAN CORPUSCULAR VOLUME 91.2 FL (78-98); MEAN PLATELET VOLUME 9.7 FL (7.4-10.4); MONOCYTES # (AUTO) 0.5 X10'3 (0-0.9); MONOCYTES % (AUTO) 6.4 % (2-12); NEUTROPHILS # (AUTO) 6.2 X10'3 (1.8-7.7); NEUTROPHILS % (AUTO) 85.3 % (42-75); PLATELET COUNT 56 X10'3 (140-440); RED CELL DISTRIBUTION WIDTH 14.3 % (11.5-14.5); WHITE BLOOD COUNT 7.3 X10'3 (4.5-11.0)
[2020-04-27 03:34] LABS: ALANINE AMINOTRANSFERASE 886 U/L (12-78); ALBUMIN 1.8 G/DL (3.4-5.0); ALKALINE PHOSPHATASE 135 IU/L (46-116); ANION GAP 8 (8-16); ASPARTATE AMINO TRANSFERASE 477 U/L (10-37); BILIRUBIN,TOTAL 12.4 MG/DL (0.1-1.0); BLOOD UREA NITROGEN 48 MG/DL (7-18); BUN/CREATININE RATIO 7.3 (5.4-32.0); CALCIUM 7.2 MG/DL (8.5-10.1); CHLORIDE 98 MMOL/L (99-107); CREATININE 6.55 MG/DL (0.60-1.10); GLUCOSE 81 MG/DL (70-104); PREALBUMIN 11.3 MG/DL (19-36); SODIUM 134 MMOL/L (135-145); TOTAL CARBON DIOXIDE 27.8 MMOL/L (24-32); eGFR 10 ML/MIN
[2020-04-27 03:39] LABS: ALBUMIN/GLOBULIN RATIO 0.8 (1.1-1.5); PHOSPHORUS 5.1 MG/DL (2.3-4.5); POTASSIUM 4.1 MMOL/L (3.5-5.1); TOTAL PROTEIN 4.1 G/DL (6.4-8.2)
[2020-04-27 03:46] LABS: ABG HCO3 24.1 mmol/L (22.0-26.0); ABG OXYGEN SATURATION 89.8 % (94-97); ABG PCO2 (T) 42.4 mmHg (35.0-48.0); ABG PO2 (T) 63.6 mmHg (75.0-100.0); ALLEN'S TEST POSITIVE; FCOHb 0.4 % (0.0-3.9); FO2Hb 89.4 % (94-97); PATIENT TEMPERATURE 37.1; PEEP 5 cm H2O; RESPIRATORY RATE 18 b/min; TIDAL VOLUME 450 mL; TOTAL HEMOGLOBIN 9.2 G/dl (14.0-18.0)
--- NOTE | 2020-04-27 06:15 | NUR ---
Patient in room CICU 2013. I have received report from RN and had the opportunity to ask questions and assume patient care.
--- NOTE | 2020-04-27 06:21 | NUR ---
Problems reprioritized. Patient report given, questions answered & plan of care reviewed with Donna MAURICE.
[2020-04-27] MEDS: FENTANYL-0.9 % NACL/PF 100 ML IV PRN (06:47)
[2020-04-27] MEDS: Dextrose 10%-water IV solution 1,000 ML IV SCH ×2 (07:27→19:26)
[2020-04-27] MEDS: pantoprazole 40 MG vial IV SCH (08:54)
[2020-04-27] MEDS: aspirin 325mg tablet OGT SCH (08:55)
[2020-04-27] MEDS: levoFLOXACIN-Levaquin 250mg/D5 50 ML IV SCH (08:56)
[2020-04-27] MEDS ORDERED: MESSAGE TO PHARMACY PO SCH (12:00)
[2020-04-27] MEDS ORDERED: dextrose 50%-water 50ml dispensing syringe IV PRN ×2 (12:45)
[2020-04-27] MEDS ORDERED: insulin Lispro (HumaLOG) vial - multi-dose SQ SCH (12:45)
[2020-04-27] MEDS ORDERED: dextrose ORAL solution 15 GM/59 ML bottle PO PRN ×2 (12:45)
[2020-04-27] MEDS ORDERED: glucagon, human recombinant 1mg kit SUBCUT PRN (12:45)
--- NOTE | 2020-04-27 13:45 | NUR ---
PT opened eyes and followed commands just after his and step daughter left.
[2020-04-27] MEDS: metoclopramide 5 mg/ml inj IV SCH ×2 (13:48→19:15)
--- NOTE | 2020-04-27 15:52 | NUR ---
Reassessment: TF on hold d/t high GRV. JUAN J discussed at rounds 04/26 the elevated GRV and patient having delayed gastric emptying. Noted that today relistor and reglan were added. Pt is stooling. Pending MD discussion with family. Recommend: 1. OGTF using vital AF at 80 ml/hr will provide 1912 ml volume, 2304 cals, 144 gram protein, 1557 ml free water. Advance toward goal rate as tolerated. 2. additional water flush 200ml Q4 3. PALB Q ; Daily weights 4. routine bowel care, reglan and relistor Addendum: 04/27/20 at [address] Amended: Links added.
--- NOTE | 2020-04-27 18:28 | NUR ---
Problems reprioritized. Patient report given, questions answered & plan of care reviewed with rn.
--- NOTE | 2020-04-27 18:30 | NUR ---
Patient in room CICU 2013. I have received report from Donna MAURICE, and had the opportunity to ask questions and assume patient care.
[2020-04-27] MEDS: dextrose 50%-water 50ml dispensing syringe IV PRN (20:40)
[2020-04-27] MEDS ORDERED: insulin glargine (Lantus) pen - multi-dose SQ SCH (21:00)
[2020-04-27] MEDS: lactobacillus rhamnosus 10,000 MMU CELLS/CAPSULE PO SCH (23:08)
[2020-04-28] VITALS (22 sets, daily range): BP systolic 99–137; BP diastolic 52–69
--- NOTE | 2020-04-28 00:30 | NUR ---
Sedation vacation was conducted while performing PM Personal hygiene. PT did open eyes and blink to command. PT was asked to squeeze hands, wiggle fingers and toes but no movement noted. Fentanyl restarted at half the previous rate so ti is not running @ 25mcg and Versed remains off. PT resting comfortably. Will continue to monitor.
--- NOTE | 2020-04-28 00:35 | NUR ---
Was not able to get a weight. Bedscale was not working. When bed was flat wt was 53Kgs, when head of bed was up weight was 94Kgs.
[2020-04-28] MEDS: mineral oil/petrolatum ophthal oint EACHEYE SCH ×4 (02:47→20:20)
[2020-04-28] MEDS: metoclopramide 5 mg/ml inj IV SCH ×4 (02:47→20:20)
[2020-04-28] MEDS: dextrose 50%-water 50ml dispensing syringe IV PRN ×2 (02:50→07:30)
[2020-04-28 03:07] LABS: BASOPHILS % (AUTO) 0.2 % (0-1); EOSINOPHILS # (AUTO) 0.1 X10'3 (0-0.9); EOSINOPHILS % (AUTO) 0.8 % (0-6); HEMOGLOBIN 8.2 g/dl (14.0-17.9); LYMPHOCYTES # (AUTO) 0.6 X10'3 (1.1-4.8); LYMPHOCYTES % (AUTO) 6.8 % (21-51); MEAN CORPUSCULAR HEMOGLOBIN 31.8 PG (27.0-31.0); MEAN CORPUSCULAR HGB CONC 34.2 g/dL (33.0-36.5); MEAN PLATELET VOLUME 9.3 FL (7.4-10.4); MONOCYTES # (AUTO) 0.5 X10'3 (0-0.9); MONOCYTES % (AUTO) 5.1 % (2-12); NEUTROPHILS # (AUTO) 8.1 X10'3 (1.8-7.7); NEUTROPHILS % (AUTO) 87.1 % (42-75); PLATELET COUNT 79 X10'3 (140-440); RED BLOOD COUNT 2.58 X10'6 (4.70-6.10); RED CELL DISTRIBUTION WIDTH 14.2 % (11.5-14.5); WHITE BLOOD COUNT 9.3 X10'3 (4.5-11.0)
[2020-04-28 03:23] LABS: ALANINE AMINOTRANSFERASE 620 U/L (12-78); ALBUMIN 1.7 G/DL (3.4-5.0); ALKALINE PHOSPHATASE 151 IU/L (46-116); ANION GAP 11 (8-16); ASPARTATE AMINO TRANSFERASE 292 U/L (10-37); BILIRUBIN,TOTAL 13.2 MG/DL (0.1-1.0); BLOOD UREA NITROGEN 70 MG/DL (7-18); BUN/CREATININE RATIO 8.2 (5.4-32.0); CALCIUM 7.7 MG/DL (8.5-10.1); CHLORIDE 95 MMOL/L (99-107); CREATININE 8.55 MG/DL (0.60-1.10); GLUCOSE 70 MG/DL (70-104); MAGNESIUM 2.1 MG/DL (1.5-2.4); SODIUM 130 MMOL/L (135-145); TOTAL CARBON DIOXIDE 23.9 MMOL/L (24-32); eGFR 7 ML/MIN
[2020-04-28 03:24] LABS: ALBUMIN/GLOBULIN RATIO 0.7 (1.1-1.5); POTASSIUM 4.4 MMOL/L (3.5-5.1); TOTAL PROTEIN 4.2 G/DL (6.4-8.2)
[2020-04-28 04:06] LABS: ABG PCO2 (T) 35.1 mmHg (35.0-48.0); ALLEN'S TEST POSITIVE; FCOHb 0.8 % (0.0-3.9); FO2Hb 97.2 % (94-97); PATIENT TEMPERATURE 36.9; PEEP 5 cm H2O; RESPIRATORY RATE 18 b/min; TIDAL VOLUME 450 mL; TOTAL HEMOGLOBIN 8.5 G/dl (14.0-18.0)
--- NOTE | 2020-04-28 04:45 | NUR ---
TF restarted d/t gastric residuals being under 200ml. Will continue to monitor.
--- NOTE | 2020-04-28 06:32 | NUR ---
Problems reprioritized. Patient report given, questions answered & plan of care reviewed with Serafin MAURICE.
[2020-04-28] MEDS: FENTANYL-0.9 % NACL/PF 100 ML IV PRN (07:48)
[2020-04-28] MEDS: Dextrose 10%-water IV solution 1,000 ML IV SCH (07:48)
[2020-04-28] MEDS ORDERED: heparin 1,000unit/ml 10ml vial 10 ML IV ONE (09:39)
[2020-04-28] MEDS ORDERED: heparin 1,000 units/ml 10ml inj IV ONE (09:40)
[2020-04-28] MEDS ORDERED: albumin (human) 25% 100ml IV 100 ML IV PRN (09:40)
[2020-04-28] MEDS ORDERED: epoetin 20,000 units/ml inj IV ONE (09:40)
[2020-04-28] MEDS ORDERED: heparin 1,000 units/ml 10ml inj HE ONE ×2 (09:45)
[2020-04-28] MEDS: levoFLOXACIN-Levaquin 250mg/D5 50 ML IV SCH (10:44)
[2020-04-28] MEDS: pantoprazole 40 MG vial IV SCH (10:44)
[2020-04-28] MEDS: lactobacillus rhamnosus 10,000 MMU CELLS/CAPSULE PO SCH ×2 (10:45→20:18)
[2020-04-28] MEDS: aspirin 325mg tablet OGT SCH (10:45)
--- NOTE | 2020-04-28 11:19 | NUR ---
Reassessment: TF restarted at 20 ml/hr. Has not been meeting needs since on vent. Pt now has relistor and reglan were added. Pt is stooling. Per MD will continue supportive care per family wishes. Recommend: 1. OGTF using vital AF at 80 ml/hr will provide 1912 ml volume, 2304 cals, 144 gram protein, 1557 ml free water. Advance toward goal rate as tolerated. 2. additional water flush 200ml Q4 3. PALB Q /; Daily weights 4. routine bowel care, prokinetic and opiod agonist antagonist Addendum: 04/28/20 at [address] Amended: Links added.
[2020-04-28] MEDS: hydrocortisone sod succ/PF 100mg/2ml inj. IV SCH ×2 (11:35→20:19)
[2020-04-28] MEDS ORDERED: WATER IV SCH (12:00)
[2020-04-28] MEDS ORDERED: WATER DEXTROSE IV SCH (12:00)
[2020-04-28] MEDS ORDERED: DEXTROSE IV SCH (12:00)
[2020-04-28] MEDS ORDERED: tPA-cathflo 2 MG/2 ml IV flush IVF ONE ×2 (12:05→16:50)
[2020-04-28] MEDS ORDERED: dextrose 50%-water 250 ML in Dextrose 10%-water IV solution 750 ML IV SCH (13:00)
[2020-04-28] MEDS: midazolam 100mg in NS 100ml 100 ML IV PRN (17:49)
--- NOTE | 2020-04-28 18:15 | NUR ---
Patient in room CICU 2012. I have received report from Serafin MAURICE and had the opportunity to ask questions and assume patient care. Patient lightly sedated on ventilator, following commands to blink with a slight delay. is at bedside encouraging him to get better. VS are WNL, will continue to monitor closely.
[2020-04-29] VITALS (24 sets, daily range): BP systolic 114–135; BP diastolic 47–81
[2020-04-29] MEDS: mineral oil/petrolatum ophthal oint EACHEYE SCH ×4 (02:24→20:50)
[2020-04-29] MEDS: metoclopramide 5 mg/ml inj IV SCH ×4 (02:26→20:50)
[2020-04-29] MEDS: hydrocortisone sod succ/PF 100mg/2ml inj. IV SCH ×4 (02:26→20:50)
[2020-04-29 03:14] LABS: BASOPHILS % (AUTO) 0.2 % (0-1); EOSINOPHILS % (AUTO) 0 % (0-6); HEMATOCRIT 24.5 % (42.0-52.0); HEMOGLOBIN 8.4 g/dl (14.0-17.9); LYMPHOCYTES # (AUTO) 0.5 X10'3 (1.1-4.8); LYMPHOCYTES % (AUTO) 4.7 % (21-51); MEAN CORPUSCULAR HEMOGLOBIN 32.1 PG (27.0-31.0); MEAN CORPUSCULAR HGB CONC 34.4 g/dL (33.0-36.5); MEAN CORPUSCULAR VOLUME 93.5 FL (78-98); MEAN PLATELET VOLUME 10.2 FL (7.4-10.4); MONOCYTES # (AUTO) 0.3 X10'3 (0-0.9); MONOCYTES % (AUTO) 3.2 % (2-12); NEUTROPHILS # (AUTO) 9.1 X10'3 (1.8-7.7); NEUTROPHILS % (AUTO) 91.9 % (42-75); PLATELET COUNT 107 X10'3 (140-440); RED BLOOD COUNT 2.62 X10'6 (4.70-6.10); RED CELL DISTRIBUTION WIDTH 14.5 % (11.5-14.5); WHITE BLOOD COUNT 9.9 X10'3 (4.5-11.0)
[2020-04-29 03:24] LABS: ALANINE AMINOTRANSFERASE 473 U/L (12-78); ALBUMIN 1.7 G/DL (3.4-5.0); ALKALINE PHOSPHATASE 162 IU/L (46-116); ASPARTATE AMINO TRANSFERASE 219 U/L (10-37); BILIRUBIN,TOTAL 12.8 MG/DL (0.1-1.0); BLOOD UREA NITROGEN 65 MG/DL (7-18); BUN/CREATININE RATIO 8.6 (5.4-32.0); CALCIUM 7.7 MG/DL (8.5-10.1); CHLORIDE 94 MMOL/L (99-107); CREATININE 7.52 MG/DL (0.60-1.10); GLUCOSE 119 MG/DL (70-104); MAGNESIUM 2.1 MG/DL (1.5-2.4); TOTAL CARBON DIOXIDE 24.4 MMOL/L (24-32); eGFR 8 ML/MIN
[2020-04-29 03:48] LABS: ALBUMIN/GLOBULIN RATIO 0.6 (1.1-1.5); ANION GAP 14 (8-16); PHOSPHORUS 7.4 MG/DL (2.3-4.5); POTASSIUM 4.9 MMOL/L (3.5-5.1); SODIUM 132 MMOL/L (135-145); TOTAL PROTEIN 4.5 G/DL (6.4-8.2)
[2020-04-29 04:26] LABS: ABG BASE EXCESS -4.9 mmol/L (-2.0-2.0); ABG HCO3 19.9 mmol/L (22.0-26.0); ABG OXYGEN SATURATION 93.8 % (94-97); ABG PCO2 (T) 33.9 mmHg (35.0-48.0); ABG PO2 (T) 70.3 mmHg (75.0-100.0); ALLEN'S TEST POSITIVE; FCOHb 0.5 % (0.0-3.9); FMetHb 0.2 % (0.0-1.5); FO2Hb 93.1 % (94-97); PATIENT TEMPERATURE 35.8; PEEP 5 cm H2O; RESPIRATORY RATE 18 b/min; TIDAL VOLUME 450 mL; TOTAL HEMOGLOBIN 9.2 G/dl (14.0-18.0)
--- NOTE | 2020-04-29 06:27 | NUR ---
Problems reprioritized. Patient report given, questions answered & plan of care reviewed with Demetria MAURICE.
[2020-04-29] MEDS: pantoprazole 40 MG vial IV SCH (07:25)
[2020-04-29] MEDS: levoFLOXACIN-Levaquin 250mg/D5 50 ML IV SCH (07:25)
[2020-04-29] MEDS: lactobacillus rhamnosus 10,000 MMU CELLS/CAPSULE PO SCH ×2 (07:26→20:50)
[2020-04-29] MEDS: aspirin 325mg tablet OGT SCH (07:26)
[2020-04-29] MEDS: methylnaltrexone br 12mg/0.6ml inj***SubQ only SQ SCH (08:00)
[2020-04-29] MEDS ORDERED: albumin (human) 25% 100ml IV 100 ML IV PRN ×2 (10:55→11:10)
[2020-04-29] MEDS ORDERED: heparin 1,000 units/ml 10ml inj IV ONE ×2 (10:55→11:10)
[2020-04-29] MEDS ORDERED: heparin 1,000unit/ml 10ml vial 10 ML IV ONE (11:09)
[2020-04-29] MEDS ORDERED: epoetin 20,000 units/ml inj IV ONE (11:10)
[2020-04-29] MEDS ORDERED: heparin 1,000 units/ml 10ml inj HE ONE ×2 (11:15)
[2020-04-29] MEDS: DEXTROSE 20% IN WATER 500mL 500 ML IV SCH ×3 (11:58→23:31)
--- NOTE | 2020-04-29 18:30 | NUR ---
Patient in room CICU 2012. I have received report from KAYLENE Augustin and had the opportunity to ask questions and assume patient care. Patient is intubated with FiO2 at 28%, PEEP of 5, Respiratory rate of 20. Restraints in place, sedation is currently off. Patients is at bedside. Normal sinus rhythm on the monitor. SpO2 97%.
--- NOTE | 2020-04-29 19:00 | NUR ---
Patients eyes are open, patient blinks on command, does not track, or follow commands to move extremities. Patient is without startle response to eyes. Patient does respond with furrowed brow with repositioning and oral care. Versed and Fentanyl remain off at this time.
--- NOTE | 2020-04-29 22:45 | NUR ---
Versed and Fentanyl re started per MD orders. Patient with strong gag reflex with oral care, patient raising head and torso off of bed. Does not follow commands. Biting tube. Patient oxygen saturation decreasing to the 80's. Patient with improved comfort and oxygenation with sedation. See IV spread sheet for rate of Versed and Fentanyl. Will continue to monitor.
[2020-04-30] VITALS (24 sets, daily range): BP systolic 126–154; BP diastolic 69–87
--- NOTE | 2020-04-30 00:40 | NUR ---
High Gastric residuals of 650mL. Tube feed held per policy.
--- NOTE | 2020-04-30 01:24 | NUR ---
unable to obtain daily weight, bed reading 41.09kg.
[2020-04-30] MEDS: metoclopramide 5 mg/ml inj IV SCH ×4 (01:50→20:38)
[2020-04-30] MEDS: hydrocortisone sod succ/PF 100mg/2ml inj. IV SCH ×4 (01:50→20:38)
[2020-04-30] MEDS: mineral oil/petrolatum ophthal oint EACHEYE SCH ×4 (01:50→20:38)
--- NOTE | 2020-04-30 02:42 | NUR ---
Tube feed re - started at 30mL/hr. Residual 20 mL. Gastric Residual Volume Flowsheet followed.
[2020-04-30 03:22] LABS: BASOPHILS % (AUTO) 0.2 % (0-1); EOSINOPHILS % (AUTO) 0 % (0-6); HEMATOCRIT 25.1 % (42.0-52.0); HEMOGLOBIN 8.4 g/dl (14.0-17.9); LYMPHOCYTES # (AUTO) 0.7 X10'3 (1.1-4.8); LYMPHOCYTES % (AUTO) 4.9 % (21-51); MEAN CORPUSCULAR HEMOGLOBIN 31.9 PG (27.0-31.0); MEAN CORPUSCULAR HGB CONC 33.6 g/dL (33.0-36.5); MEAN CORPUSCULAR VOLUME 94.9 FL (78-98); MEAN PLATELET VOLUME 9.4 FL (7.4-10.4); MONOCYTES # (AUTO) 1.2 X10'3 (0-0.9); MONOCYTES % (AUTO) 8.8 % (2-12); NEUTROPHILS # (AUTO) 11.8 X10'3 (1.8-7.7); NEUTROPHILS % (AUTO) 86.1 % (42-75); PLATELET COUNT 212 X10'3 (140-440); RED BLOOD COUNT 2.64 X10'6 (4.70-6.10); RED CELL DISTRIBUTION WIDTH 14.4 % (11.5-14.5); WHITE BLOOD COUNT 13.7 X10'3 (4.5-11.0)
[2020-04-30 03:36] LABS: ALANINE AMINOTRANSFERASE 386 U/L (12-78); ALBUMIN 1.8 G/DL (3.4-5.0); ALKALINE PHOSPHATASE 179 IU/L (46-116); ASPARTATE AMINO TRANSFERASE 197 U/L (10-37); BILIRUBIN,TOTAL 9.7 MG/DL (0.1-1.0); BLOOD UREA NITROGEN 54 MG/DL (7-18); BUN/CREATININE RATIO 9.1 (5.4-32.0); CALCIUM 7.8 MG/DL (8.5-10.1); CHLORIDE 96 MMOL/L (99-107); CREATININE 5.91 MG/DL (0.60-1.10); GLUCOSE 130 MG/DL (70-104); MAGNESIUM 2.1 MG/DL (1.5-2.4); TOTAL CARBON DIOXIDE 24.4 MMOL/L (24-32); eGFR 11 ML/MIN
[2020-04-30 03:51] LABS: ALBUMIN/GLOBULIN RATIO 0.6 (1.1-1.5); ANION GAP 13 (8-16); PHOSPHORUS 5.6 MG/DL (2.3-4.5); POTASSIUM 4.2 MMOL/L (3.5-5.1); SODIUM 133 MMOL/L (135-145); TOTAL PROTEIN 4.6 G/DL (6.4-8.2)
[2020-04-30 04:06] LABS: ABG BASE EXCESS -3.8 mmol/L (-2.0-2.0); ABG HCO3 19.9 mmol/L (22.0-26.0); ABG PCO2 (T) 31.1 mmHg (35.0-48.0); ABG PO2 (T) 111.6 mmHg (75.0-100.0); ALLEN'S TEST POSITIVE; FCOHb 0.3 % (0.0-3.9); FO2Hb 97.7 % (94-97); PATIENT TEMPERATURE 36.9; PEEP 5 cm H2O; RESPIRATORY RATE 18 b/min; TIDAL VOLUME 450 mL; TOTAL HEMOGLOBIN 9.1 G/dl (14.0-18.0)
--- NOTE | 2020-04-30 06:00 | NUR ---
Patient moving left leg, attempting to raise head. Brow furrowed. Patient tachycardic at 120 and increased respiratory rate to 26. Patient does not follow commands or track with eyes.
--- NOTE | 2020-04-30 06:30 | NUR ---
Problems reprioritized. Patient report given, questions answered & plan of care reviewed with KAYLENE Augustin.
[2020-04-30] MEDS: aspirin 325mg tablet OGT SCH (07:12)
[2020-04-30] MEDS: levoFLOXACIN-Levaquin 250mg/D5 50 ML IV SCH (07:12)
[2020-04-30] MEDS: lactobacillus rhamnosus 10,000 MMU CELLS/CAPSULE PO SCH ×2 (07:13→20:38)
[2020-04-30] MEDS: pantoprazole 40 MG vial IV SCH (07:13)
[2020-04-30] MEDS: DEXTROSE 20% IN WATER 500mL 500 ML IV SCH (10:36)
[2020-04-30] MEDS: midazolam 100mg in NS 100ml 100 ML IV PRN (11:17)
--- NOTE | 2020-04-30 12:10 | NUR ---
Daniel consult: Pt continues to not tolerate EN GRV 500 twice this AM w/ TF at 30ml/hr. 600ml rectal tube output as well past 24 hours noted. Requiring HD for KATHERINE per MD. Na 133; JUAN J d/w RN regarding holding free water since receiving HD if MD agreeable. Pt has +4 general severe edema w/ pressure area on mouth where ET is given pt edentulous status. No open wounds noted at this time per WOC. Pt remains full code s/p family meeting though poor prognosis per MD; will monitor for changes in code status as well. Recommend: 1. OGTF using vital AF at 80 ml/hr will provide 1912 ml volume, 2304 cals, 144 gram protein, 1557 ml free water. Advance toward goal rate as tolerated. 2. additional water flush per fire sprinkler service technician; on HD 3. PALB Q /; Daily weights 4. routine bowel care, prokinetic and opiod agonist antagonist Addendum: 04/30/20 at [address] Amended: Links added.
[2020-04-30] MEDS: FENTANYL-0.9 % NACL/PF 100 ML IV PRN (13:03)
--- NOTE | 2020-04-30 18:11 | NUR ---
pt has moments of agitation, wakes up, left up his head and moves his legs for few seconds then goes back to calm. Problems reprioritized. Patient report given to store keeper RN, questions answered & plan of care reviewed with [].
--- NOTE | 2020-04-30 18:15 | NUR ---
Patient in room CICU 2013. I have received report from KAYLENE Augustin and had the opportunity to ask questions and assume patient care.
--- NOTE | 2020-04-30 19:00 | NUR ---
Patient intubated and sedated. FiO2 25% on ventilator. Patients eyes open spontaneously, does not track or follow commands. Patient agitated during oral care, raising head and torso from bed, coughing, large Tidal volumes on the ventilator of 1500. Patient with furrowed brow and tears. Sedation bolus administered per MD order. See IV spreadsheet.
[2020-05-01] VITALS (24 sets, daily range): BP systolic 125–146; BP diastolic 76–95
[2020-05-01] MEDS: DEXTROSE 20% IN WATER 500mL 500 ML IV SCH ×3 (02:00→16:05)
[2020-05-01] MEDS: metoclopramide 5 mg/ml inj IV SCH ×2 (02:29→07:29)
[2020-05-01] MEDS: hydrocortisone sod succ/PF 100mg/2ml inj. IV SCH ×4 (02:29→20:52)
[2020-05-01] MEDS: mineral oil/petrolatum ophthal oint EACHEYE SCH ×4 (02:30→20:52)
[2020-05-01] MEDS: midazolam 100mg in NS 100ml 100 ML IV PRN ×2 (02:39→10:17)
[2020-05-01 02:57] LABS: BASOPHILS # (AUTO) 0.1 X10'3 (0-0.2); BASOPHILS % (AUTO) 0.4 % (0-1); EOSINOPHILS % (AUTO) 0 % (0-6); HEMATOCRIT 23.6 % (42.0-52.0); LYMPHOCYTES # (AUTO) 0.8 X10'3 (1.1-4.8); MEAN CORPUSCULAR HGB CONC 33.8 g/dL (33.0-36.5); MEAN CORPUSCULAR VOLUME 94.9 FL (78-98); MEAN PLATELET VOLUME 8.8 FL (7.4-10.4); MONOCYTES # (AUTO) 1.2 X10'3 (0-0.9); MONOCYTES % (AUTO) 9.1 % (2-12); NEUTROPHILS # (AUTO) 11.3 X10'3 (1.8-7.7); NEUTROPHILS % (AUTO) 84.5 % (42-75); PLATELET COUNT 257 X10'3 (140-440); RED BLOOD COUNT 2.49 X10'6 (4.70-6.10); RED CELL DISTRIBUTION WIDTH 14.1 % (11.5-14.5); WHITE BLOOD COUNT 13.4 X10'3 (4.5-11.0)
[2020-05-01 03:09] LABS: ALANINE AMINOTRANSFERASE 308 U/L (12-78); ALBUMIN 1.6 G/DL (3.4-5.0); ALKALINE PHOSPHATASE 172 IU/L (46-116); ANION GAP 10 (8-16); ASPARTATE AMINO TRANSFERASE 165 U/L (10-37); BILIRUBIN,TOTAL 7.3 MG/DL (0.1-1.0); BLOOD UREA NITROGEN 83 MG/DL (7-18); BUN/CREATININE RATIO 10.9 (5.4-32.0); CALCIUM 7.4 MG/DL (8.5-10.1); CHLORIDE 94 MMOL/L (99-107); CREATININE 7.61 MG/DL (0.60-1.10); GLUCOSE 107 MG/DL (70-104); MAGNESIUM 2.3 MG/DL (1.5-2.4); PREALBUMIN 14.5 MG/DL (19-36); SODIUM 128 MMOL/L (135-145); TOTAL CARBON DIOXIDE 23.9 MMOL/L (24-32); eGFR 8 ML/MIN
[2020-05-01 03:12] LABS: ALBUMIN/GLOBULIN RATIO 0.5 (1.1-1.5); PHOSPHORUS 7.8 MG/DL (2.3-4.5); POTASSIUM 4.7 MMOL/L (3.5-5.1); TOTAL PROTEIN 4.6 G/DL (6.4-8.2)
[2020-05-01] MEDS: FENTANYL-0.9 % NACL/PF 100 ML IV PRN (04:30)
[2020-05-01 04:51] LABS: ABG HCO3 20.1 mmol/L (22.0-26.0); ABG OXYGEN SATURATION 97.4 % (94-97); ABG PCO2 (T) 32.7 mmHg (35.0-48.0); ABG PO2 (T) 99.8 mmHg (75.0-100.0); ALLEN'S TEST POSITIVE; FCOHb 0.3 % (0.0-3.9); FMetHb 0.2 % (0.0-1.5); FO2Hb 96.9 % (94-97); PATIENT TEMPERATURE 36.9; PEEP 5 cm H2O; RESPIRATORY RATE 18 b/min; TIDAL VOLUME 450 mL; TOTAL HEMOGLOBIN 8.8 G/dl (14.0-18.0)
--- NOTE | 2020-05-01 05:34 | NUR ---
Low sodium of 128. October DEEPALI Roper ordered to D/C free water flushes.
--- NOTE | 2020-05-01 06:30 | NUR ---
Problems reprioritized. Patient report given, questions answered & plan of care reviewed with Art, RN.
[2020-05-01] MEDS: lactobacillus rhamnosus 10,000 MMU CELLS/CAPSULE PO SCH ×2 (07:29→20:52)
[2020-05-01] MEDS: levoFLOXACIN-Levaquin 250mg/D5 50 ML IV SCH (07:29)
[2020-05-01] MEDS: methylnaltrexone br 12mg/0.6ml inj***SubQ only SQ SCH (07:29)
[2020-05-01] MEDS: pantoprazole 40 MG vial IV SCH (07:29)
[2020-05-01] MEDS: aspirin 325mg tablet OGT SCH (07:33)
--- NOTE | 2020-05-01 11:07 | NUR ---
Tube feeding turned off, pt suction will be turned on to evacuate the stomach.
--- NOTE | 2020-05-01 12:09 | NUR ---
Follow up: Patient still having delayed gastric empting. GRV up to 650 ml. Patient's tube feeding is at 30 ml/hr. Have not been able to meet nutrient needs since intubation on 04/20. He is receiving Relistor and Reglan. Pt is stooling. Discussed above with . Per pt will start on erythromycin to stimulate gastric movement and will attempt post pyloric tube placement, ordered a KUB to check to any possible impaction. Addendum: 05/01/20 at [address] Amended: Links added.
--- NOTE | 2020-05-01 12:09 | NUR ---
Follow up: Patient still having delayed gastric empting. GRV up to 650 ml. Patient's tube feeding is at 30 ml/hr. Have not been able to meet nutrient needs since intubation on 04/20. He is receiving Relistor and Reglan. Pt is stooling. Discussed above with MD. Per MD pt will start on erythromycin to stimulate gastric movement and will attempt post pyloric tube placement, MD ordered a KUB to check to any possible impaction.
--- NOTE | 2020-05-01 12:23 | NUR ---
PER angio- TDC placement will be tomorrow. Tala Polo.
--- NOTE | 2020-05-01 12:54 | NUR ---
Pt tube feeding turned back on as pt will have procedure tomorrow.
[2020-05-01] MEDS ORDERED: metoclopramide 5 mg/ml inj IV ONE (12:55)
[2020-05-01] MEDS: erythromycin base 250mg tablet PO SCH ×2 (12:57→20:52)
--- NOTE | 2020-05-01 14:49 | NUR ---
Central line tubing changed. Addendum: 05/01/20 at 1459 by Tyler Van III, RN Central line dressing was changed, not the tubing.
--- NOTE | 2020-05-01 18:30 | NUR ---
Patient in room CICU 2013. I have received report from Art, RN and had the opportunity to ask questions and assume patient care.
--- NOTE | 2020-05-01 19:38 | NUR ---
Updated on plan of care.
[2020-05-02] VITALS (24 sets, daily range): BP systolic 117–150; BP diastolic 71–90
--- NOTE | 2020-05-02 00:15 | NUR ---
Pt has increased alertness. Pt is able to follow the commands of closing his eyes when cleaning his eyes and he can squeeze nurse hands when commanded too. Pt has lifted head from pillow on many occasions to cough. Bilateral leg movement also observed.
[2020-05-02] MEDS: FENTANYL-0.9 % NACL/PF 100 ML IV PRN (01:02)
[2020-05-02] MEDS: mineral oil/petrolatum ophthal oint EACHEYE SCH ×3 (02:05→20:25)
[2020-05-02] MEDS: hydrocortisone sod succ/PF 100mg/2ml inj. IV SCH ×3 (02:05→20:25)
[2020-05-02] MEDS: DEXTROSE 20% IN WATER 500mL 500 ML IV SCH ×2 (02:25→07:40)
[2020-05-02 03:12] LABS: BASOPHILS % (AUTO) 0.1 % (0-1); EOSINOPHILS % (AUTO) 0 % (0-6); HEMATOCRIT 23.7 % (42.0-52.0); LYMPHOCYTES # (AUTO) 0.4 X10'3 (1.1-4.8); MEAN CORPUSCULAR HEMOGLOBIN 32.1 PG (27.0-31.0); MEAN CORPUSCULAR HGB CONC 33.7 g/dL (33.0-36.5); MEAN CORPUSCULAR VOLUME 95.2 FL (78-98); MEAN PLATELET VOLUME 8.5 FL (7.4-10.4); MONOCYTES # (AUTO) 1.3 X10'3 (0-0.9); MONOCYTES % (AUTO) 9.3 % (2-12); NEUTROPHILS # (AUTO) 12.5 X10'3 (1.8-7.7); NEUTROPHILS % (AUTO) 87.6 % (42-75); PLATELET COUNT 261 X10'3 (140-440); RED BLOOD COUNT 2.49 X10'6 (4.70-6.10); RED CELL DISTRIBUTION WIDTH 14.7 % (11.5-14.5); WHITE BLOOD COUNT 14.2 X10'3 (4.5-11.0)
[2020-05-02 03:35] LABS: ALANINE AMINOTRANSFERASE 244 U/L (12-78); ALBUMIN 1.6 G/DL (3.4-5.0); ALBUMIN/GLOBULIN RATIO 0.6 (1.1-1.5); ALKALINE PHOSPHATASE 173 IU/L (46-116); ANION GAP 11 (8-16); ASPARTATE AMINO TRANSFERASE 130 U/L (10-37); BILIRUBIN,TOTAL 6.2 MG/DL (0.1-1.0); BLOOD UREA NITROGEN 121 MG/DL (7-18); BUN/CREATININE RATIO 12.9 (5.4-32.0); CALCIUM 7.3 MG/DL (8.5-10.1); CHLORIDE 90 MMOL/L (99-107); GLUCOSE 160 MG/DL (70-104); MAGNESIUM 2.6 MG/DL (1.5-2.4); PHOSPHORUS 8.9 MG/DL (2.3-4.5); POTASSIUM 4.8 MMOL/L (3.5-5.1); SODIUM 123 MMOL/L (135-145); TOTAL CARBON DIOXIDE 21.6 MMOL/L (24-32); TOTAL PROTEIN 4.5 G/DL (6.4-8.2); eGFR 6 ML/MIN
[2020-05-02] MEDS: midazolam 100mg in NS 100ml 100 ML IV PRN ×3 (03:46→21:50)
[2020-05-02 04:31] LABS: ABG BASE EXCESS -5.9 mmol/L (-2.0-2.0); ABG HCO3 18.1 mmol/L (22.0-26.0); ABG PO2 (T) 113.8 mmHg (75.0-100.0); ALLEN'S TEST POSITIVE; FCOHb 0.3 % (0.0-3.9); FMetHb 0.1 % (0.0-1.5); FO2Hb 97.6 % (94-97); PATIENT TEMPERATURE 36.9; PEEP 5 cm H2O; TOTAL HEMOGLOBIN 8.5 G/dl (14.0-18.0)
--- NOTE | 2020-05-02 06:23 | NUR ---
Problems reprioritized. Patient report given, questions answered & plan of care reviewed with KAYLENE Clifton.
[2020-05-02] MEDS: levoFLOXACIN-Levaquin 250mg/D5 50 ML IV SCH (07:39)
[2020-05-02] MEDS: lactobacillus rhamnosus 10,000 MMU CELLS/CAPSULE PO SCH ×2 (07:40→20:25)
[2020-05-02] MEDS: pantoprazole 40 MG vial IV SCH (07:40)
[2020-05-02] MEDS: aspirin 325mg tablet OGT SCH (07:51)
[2020-05-02] MEDS: erythromycin base 250mg tablet PO SCH ×2 (08:00→20:24)
[2020-05-02] MEDS ORDERED: heparin 1,000unit/ml 10ml vial 10 ML ONE (08:15)
[2020-05-02] MEDS ORDERED: LIDOcaine 1%/PF 5ML 10 MG/ML VIAL ONE (08:15)
[2020-05-02] MEDS ORDERED: midazolam 2 mg/2 ml injection ONE (08:16)
[2020-05-02] MEDS ORDERED: fentaNYL/PF 50MCG/1 ML 2ML syringe ONE (08:16)
[2020-05-02] MEDS ORDERED: gelatin sponge, absorbable (Gelfoam 12-7MM) sponge TP ONE ×2 (09:13→19:30)
[2020-05-02] MEDS ORDERED: heparin 1,000unit/ml 10ml vial 10 ML IV ONE (10:46)
[2020-05-02] MEDS ORDERED: normal saline 1000ml 250 ML IV PRN (10:46)
[2020-05-02] MEDS ORDERED: epoetin 20,000 units/ml inj IV ONE (10:50)
[2020-05-02] MEDS ORDERED: heparin 1,000 units/ml 10ml inj HE ONE ×2 (10:50)
--- NOTE | 2020-05-02 18:28 | NUR ---
Report given to KAYLENE Thompson
--- NOTE | 2020-05-02 18:30 | NUR ---
Patient in room CICU 2013. I have received report from KAYLENE Ayala and had the opportunity to ask questions and assume patient care.
--- NOTE | 2020-05-02 21:00 | NUR ---
Friend, Erika, called and attempted to inquire about pt's plane of care. Friend was informed that nurse was unable to talk to her due to HIPPA. Friend continued to then accuse pt's of being abusive and diabetic, then threatened to call APS. Nurse once again told friend she was unable to speak to her.
[2020-05-03] VITALS (28 sets, daily range): BP systolic 128–154; BP diastolic 69–90
[2020-05-03] MEDS: mineral oil/petrolatum ophthal oint EACHEYE SCH ×4 (02:00→20:14)
[2020-05-03] MEDS: hydrocortisone sod succ/PF 100mg/2ml inj. IV SCH ×4 (03:54→20:13)
[2020-05-03 04:08] LABS: BASOPHILS # (AUTO) 0.1 X10'3 (0-0.2); BASOPHILS % (AUTO) 0.4 % (0-1); EOSINOPHILS % (AUTO) 0 % (0-6); LYMPHOCYTES # (AUTO) 0.3 X10'3 (1.1-4.8); LYMPHOCYTES % (AUTO) 2.3 % (21-51); MEAN CORPUSCULAR HGB CONC 33.8 g/dL (33.0-36.5); MEAN CORPUSCULAR VOLUME 94.9 FL (78-98); MEAN PLATELET VOLUME 8.3 FL (7.4-10.4); MONOCYTES # (AUTO) 1.4 X10'3 (0-0.9); MONOCYTES % (AUTO) 9.7 % (2-12); NEUTROPHILS # (AUTO) 12.9 X10'3 (1.8-7.7); NEUTROPHILS % (AUTO) 87.6 % (42-75); PLATELET COUNT 340 X10'3 (140-440); RED BLOOD COUNT 2.17 X10'6 (4.70-6.10); RED CELL DISTRIBUTION WIDTH 15.1 % (11.5-14.5); WHITE BLOOD COUNT 14.8 X10'3 (4.5-11.0)
[2020-05-03 04:16] LABS: ABG BASE EXCESS -3.4 mmol/L (-2.0-2.0); ABG HCO3 20.5 mmol/L (22.0-26.0); ABG OXYGEN SATURATION 95.9 % (94-97); ABG PCO2 (T) 31.2 mmHg (35.0-48.0); ABG PO2 (T) 86.3 mmHg (75.0-100.0); ALLEN'S TEST POSITIVE; FCOHb 0.4 % (0.0-3.9); FO2Hb 95.5 % (94-97); PATIENT TEMPERATURE 36.5; PEEP 5 cm H2O; RESPIRATORY RATE 18 b/min; TIDAL VOLUME 450 mL
[2020-05-03 04:18] LABS: ALANINE AMINOTRANSFERASE 197 U/L (12-78); ALBUMIN 1.5 G/DL (3.4-5.0); ALKALINE PHOSPHATASE 156 IU/L (46-116); ANION GAP 11 (8-16); ASPARTATE AMINO TRANSFERASE 124 U/L (10-37); BILIRUBIN,TOTAL 5.1 MG/DL (0.1-1.0); BLOOD UREA NITROGEN 92 MG/DL (7-18); CHLORIDE 97 MMOL/L (99-107); CREATININE 7.06 MG/DL (0.60-1.10); GLUCOSE 112 MG/DL (70-104); HEMATOCRIT 20.6 % (42.0-52.0); MAGNESIUM 2.3 MG/DL (1.5-2.4); POTASSIUM 4.8 MMOL/L (3.5-5.1); SODIUM 130 MMOL/L (135-145); TOTAL CARBON DIOXIDE 22.4 MMOL/L (24-32); eGFR 9 ML/MIN
[2020-05-03 04:19] LABS: ALBUMIN/GLOBULIN RATIO 0.5 (1.1-1.5); PHOSPHORUS 8.1 MG/DL (2.3-4.5); TOTAL PROTEIN 4.3 G/DL (6.4-8.2)
--- NOTE | 2020-05-03 04:21 | NUR ---
NOC skin drier aware of Hgb 7.0 and Hct 20.6. Pt currently observed to be asymptomatic with no signs of distress. Repeat lab ordered to be taken 0600.
--- NOTE | 2020-05-03 06:16 | NUR ---
Problems reprioritized. Patient report given, questions answered & plan of care reviewed with KAYLENE Clifton.
--- NOTE | 2020-05-03 06:30 | NUR ---
Received report from KAYLENE Thompson.
--- NOTE | 2020-05-03 06:32 | NUR ---
Received report from KAYLENE Thompson
[2020-05-03] MEDS: methylnaltrexone br 12mg/0.6ml inj***SubQ only SQ SCH ×2 (06:35→08:46)
[2020-05-03 07:11] LABS: HEMOGLOBIN 7.2 g/dl (14.0-17.9); MEAN CORPUSCULAR HEMOGLOBIN 32.7 PG (27.0-31.0); MEAN CORPUSCULAR HGB CONC 34.3 g/dL (33.0-36.5); MEAN CORPUSCULAR VOLUME 95.5 FL (78-98); MEAN PLATELET VOLUME 8.2 FL (7.4-10.4); PARTIAL THROMBOPLASTIN TIME 44 SECONDS (22-32); PLATELET COUNT 361 X10'3 (140-440); RED CELL DISTRIBUTION WIDTH 15.6 % (11.5-14.5); WHITE BLOOD COUNT 15.4 X10'3 (4.5-11.0)
[2020-05-03] MEDS: erythromycin base 250mg tablet PO SCH (08:45)
[2020-05-03] MEDS: lactobacillus rhamnosus 10,000 MMU CELLS/CAPSULE PO SCH ×2 (08:45→20:14)
[2020-05-03] MEDS: pantoprazole 40 MG vial IV SCH (08:45)
[2020-05-03] MEDS: levoFLOXACIN-Levaquin 250mg/D5 50 ML IV SCH (08:45)
[2020-05-03] MEDS: DEXTROSE 20% IN WATER 500mL 500 ML IV SCH (08:45)
[2020-05-03] MEDS: aspirin 325mg tablet OGT SCH (08:45)
--- NOTE | 2020-05-03 11:14 | NUR ---
Follow up: Patient's GRV now under 25 ml. Tube feeding almost at goal rate, currently at 70 ml/hr. Has rectal tube, having moderate liquid stools. Receiving erythromycin, reglan, relistor. Feeding tube tip was advanced further into stomach by RN. Receiving HD and is s/p TDC placement. Recommend: 1. OGTF using vital AF at 80 ml/hr will provide 1912 ml volume, 2304 cals, 144 gram protein, 1557 ml free water. Advance toward goal rate as tolerated. 2. additional water flush per mounting inspector; on HD 3. PALB Q /; Daily weights 4. routine bowel care, prokinetic and opiod agonist antagonist Addendum: 05/03/20 at [address] Amended: Links added.
[2020-05-03] MEDS: FENTANYL-0.9 % NACL/PF 100 ML IV PRN (16:32)
--- NOTE | 2020-05-03 18:05 | NUR ---
Report given to oncoming RN
--- NOTE | 2020-05-03 18:27 | NUR ---
Patient in room CICU 2013. I have received report from Elodia MAURICE and had the opportunity to ask questions and assume patient care.
[2020-05-03] MEDS: heparin, porcine 5000 units/ml vial SQ SCH (20:14)
[2020-05-03] MEDS: midazolam 100mg in NS 100ml 100 ML IV PRN (21:38)
[2020-05-04] VITALS (24 sets, daily range): BP systolic 126–152; BP diastolic 66–88
[2020-05-04] MEDS: mineral oil/petrolatum ophthal oint EACHEYE SCH ×4 (02:02→20:46)
[2020-05-04] MEDS: hydrocortisone sod succ/PF 100mg/2ml inj. IV SCH ×4 (02:02→20:45)
[2020-05-04 03:35] LABS: ABG BASE EXCESS -6.6 mmol/L (-2.0-2.0); ABG HCO3 17.8 mmol/L (22.0-26.0); ABG OXYGEN SATURATION 95.7 % (94-97); ABG PCO2 (T) 30.6 mmHg (35.0-48.0); ABG PO2 (T) 89.8 mmHg (75.0-100.0); ALLEN'S TEST POSITIVE; FCOHb 0.3 % (0.0-3.9); FMetHb 0.2 % (0.0-1.5); FO2Hb 95.2 % (94-97); PATIENT TEMPERATURE 36.8; PEEP 5 cm H2O; RESPIRATORY RATE 18 b/min; TIDAL VOLUME 450 mL; TOTAL HEMOGLOBIN 8.4 G/dl (14.0-18.0)
[2020-05-04 04:28] LABS: BASOPHILS % (AUTO) 0.3 % (0-1); EOSINOPHILS % (AUTO) 0 % (0-6); HEMATOCRIT 22.5 % (42.0-52.0); HEMOGLOBIN 7.6 g/dl (14.0-17.9); LYMPHOCYTES # (AUTO) 0.4 X10'3 (1.1-4.8); LYMPHOCYTES % (AUTO) 2.8 % (21-51); MEAN CORPUSCULAR HGB CONC 33.9 g/dL (33.0-36.5); MEAN CORPUSCULAR VOLUME 94.4 FL (78-98); MEAN PLATELET VOLUME 8.4 FL (7.4-10.4); MONOCYTES % (AUTO) 7.1 % (2-12); NEUTROPHILS % (AUTO) 89.8 % (42-75); PLATELET COUNT 340 X10'3 (140-440); RED BLOOD COUNT 2.38 X10'6 (4.70-6.10); RED CELL DISTRIBUTION WIDTH 17.4 % (11.5-14.5); WHITE BLOOD COUNT 14.4 X10'3 (4.5-11.0)
[2020-05-04 04:40] LABS: ALANINE AMINOTRANSFERASE 188 U/L (12-78); ALBUMIN 1.6 G/DL (3.4-5.0); ALKALINE PHOSPHATASE 158 IU/L (46-116); ANION GAP 13 (8-16); ASPARTATE AMINO TRANSFERASE 118 U/L (10-37); BILIRUBIN,TOTAL 4.5 MG/DL (0.1-1.0); BLOOD UREA NITROGEN 133 MG/DL (7-18); BUN/CREATININE RATIO 14.8 (5.4-32.0); CALCIUM 7.4 MG/DL (8.5-10.1); CHLORIDE 96 MMOL/L (99-107); CREATININE 9.01 MG/DL (0.60-1.10); GLUCOSE 130 MG/DL (70-104); MAGNESIUM 2.6 MG/DL (1.5-2.4); POTASSIUM 5.1 MMOL/L (3.5-5.1); PREALBUMIN 20.3 MG/DL (19-36); SODIUM 130 MMOL/L (135-145); eGFR 7 ML/MIN
[2020-05-04 04:41] LABS: ALBUMIN/GLOBULIN RATIO 0.6 (1.1-1.5); PHOSPHORUS 9.8 MG/DL (2.3-4.5); TOTAL PROTEIN 4.4 G/DL (6.4-8.2)
--- NOTE | 2020-05-04 06:18 | NUR ---
Problems reprioritized. Patient report given, questions answered & plan of care reviewed with Jaime MAURICE.
[2020-05-04] MEDS ORDERED: heparin 1,000unit/ml 10ml vial 10 ML IV ONE (06:56)
[2020-05-04] MEDS ORDERED: heparin 1,000 units/ml 10ml inj IV ONE (07:00)
[2020-05-04] MEDS ORDERED: heparin 1,000 units/ml 10ml inj HE ONE ×2 (07:00→08:35)
[2020-05-04] MEDS: pantoprazole 40 MG vial IV SCH (07:18)
[2020-05-04] MEDS: lactobacillus rhamnosus 10,000 MMU CELLS/CAPSULE PO SCH ×2 (07:19→20:46)
[2020-05-04] MEDS: heparin, porcine 5000 units/ml vial SQ SCH ×2 (07:19→20:45)
[2020-05-04] MEDS: aspirin 325mg tablet OGT SCH (07:19)
[2020-05-04] MEDS: FENTANYL-0.9 % NACL/PF 100 ML IV PRN ×2 (07:26→22:51)
--- NOTE | 2020-05-04 18:13 | NUR ---
Problems reprioritized. Patient report given, questions answered & plan of care reviewed with Regis MAURICE.
--- NOTE | 2020-05-04 23:00 | NUR ---
Patient in room CICU 2013. I have received report from Regis MAURICE and Jennifer Carbajal RN and had the opportunity to ask questions and assume patient care. Patient sedated, on ventilator and VS are WNL, will continue to monitor.
[2020-05-05] VITALS (23 sets, daily range): BP systolic 125–150; BP diastolic 76–96
[2020-05-05] MEDS: hydrocortisone sod succ/PF 100mg/2ml inj. IV SCH ×4 (01:52→20:32)
[2020-05-05] MEDS: mineral oil/petrolatum ophthal oint EACHEYE SCH ×4 (01:53→20:00)
[2020-05-05 02:48] LABS: BASOPHILS # (AUTO) 0.1 X10'3 (0-0.2); BASOPHILS % (AUTO) 0.4 % (0-1); EOSINOPHILS % (AUTO) 0 % (0-6); HEMATOCRIT 22.5 % (42.0-52.0); HEMOGLOBIN 7.7 g/dl (14.0-17.9); LYMPHOCYTES # (AUTO) 0.4 X10'3 (1.1-4.8); LYMPHOCYTES % (AUTO) 2.4 % (21-51); MEAN CORPUSCULAR HEMOGLOBIN 32.8 PG (27.0-31.0); MEAN CORPUSCULAR HGB CONC 34.3 g/dL (33.0-36.5); MEAN CORPUSCULAR VOLUME 95.4 FL (78-98); MONOCYTES # (AUTO) 1.2 X10'3 (0-0.9); NEUTROPHILS # (AUTO) 13.7 X10'3 (1.8-7.7); NEUTROPHILS % (AUTO) 89.2 % (42-75); PLATELET COUNT 332 X10'3 (140-440); RED BLOOD COUNT 2.36 X10'6 (4.70-6.10); RED CELL DISTRIBUTION WIDTH 18.1 % (11.5-14.5); WHITE BLOOD COUNT 15.4 X10'3 (4.5-11.0)
[2020-05-05 03:16] LABS: ALANINE AMINOTRANSFERASE 181 U/L (12-78); ALBUMIN 1.6 G/DL (3.4-5.0); ALKALINE PHOSPHATASE 163 IU/L (46-116); ANION GAP 12 (8-16); ASPARTATE AMINO TRANSFERASE 104 U/L (10-37); BILIRUBIN,TOTAL 3.6 MG/DL (0.1-1.0); BLOOD UREA NITROGEN 110 MG/DL (7-18); BUN/CREATININE RATIO 15.3 (5.4-32.0); CALCIUM 7.5 MG/DL (8.5-10.1); CHLORIDE 98 MMOL/L (99-107); CREATININE 7.17 MG/DL (0.60-1.10); GLUCOSE 119 MG/DL (70-104); MAGNESIUM 2.3 MG/DL (1.5-2.4); POTASSIUM 4.7 MMOL/L (3.5-5.1); SODIUM 134 MMOL/L (135-145); TOTAL CARBON DIOXIDE 23.6 MMOL/L (24-32); eGFR 9 ML/MIN
[2020-05-05 03:17] LABS: ALBUMIN/GLOBULIN RATIO 0.6 (1.1-1.5); PHOSPHORUS 9.2 MG/DL (2.3-4.5); TOTAL PROTEIN 4.5 G/DL (6.4-8.2)
[2020-05-05 03:46] LABS: ABG BASE EXCESS -6.1 mmol/L (-2.0-2.0); ABG HCO3 17.8 mmol/L (22.0-26.0); ABG OXYGEN SATURATION 97.1 % (94-97); ABG PCO2 (T) 28.8 mmHg (35.0-48.0); ABG PO2 (T) 101.7 mmHg (75.0-100.0); ALLEN'S TEST POSITIVE; FCOHb 0.7 % (0.0-3.9); FMetHb 0.3 % (0.0-1.5); FO2Hb 96.1 % (94-97); PATIENT TEMPERATURE 36.7; PEEP 5 cm H2O; RESPIRATORY RATE 14 b/min; TIDAL VOLUME 550 mL; TOTAL HEMOGLOBIN 8.8 G/dl (14.0-18.0)
--- NOTE | 2020-05-05 06:16 | NUR ---
Problems reprioritized. Patient report given, questions answered & plan of care reviewed with Serafin MAURICE.
[2020-05-05] MEDS: pantoprazole 40 MG vial IV SCH (07:45)
[2020-05-05] MEDS: lactobacillus rhamnosus 10,000 MMU CELLS/CAPSULE PO SCH ×2 (07:45→20:00)
[2020-05-05] MEDS: methylnaltrexone br 12mg/0.6ml inj***SubQ only SQ SCH (07:45)
[2020-05-05] MEDS: heparin, porcine 5000 units/ml vial SQ SCH ×2 (07:45→20:32)
[2020-05-05] MEDS: aspirin 325mg tablet OGT SCH (07:45)
--- NOTE | 2020-05-05 10:56 | NUR ---
Patient extubated at 1055 and placed on 2L NC. Patient verbalizing statements. No distress.
[2020-05-05] MEDS ORDERED: heparin 1,000unit/ml 10ml vial 10 ML IV ONE (13:27)
[2020-05-05] MEDS ORDERED: heparin 1,000 units/ml 10ml inj HE ONE ×2 (13:30)
--- NOTE | 2020-05-05 14:17 | NUR ---
Reassessment: patient was extubated. Tube feeds off. Pending BSS. Has clear liquid diet. Will follow. Recommend: 1. Diet advancement as medically indicated to regular texture per POEM WRITER recs 2. routine bowel care 3. wt per rx Addendum: 05/05/20 at [address] Amended: Links added.
[2020-05-05 15:52] LABS: CLARITY,URINE CLOUDY (Clear); COLOR,URINE YELLOW (Yellow); GLUCOSE, URINE NEGATIVE (Neg); KETONES,URINE NEGATIVE (Neg); LEUKOCYTE ESTERASE ,URINE SMALL (Neg); NITRITES, URINE NEGATIVE (Neg); OCCULT BLOOD,URINE LARGE (Neg); PH,URINE 6.5 (4.8-8.0); PROTEIN,URINE 30 mg/dl (Neg); UROBILINOGEN,URINE 0.2 E.U/dL (0.2-1.0)
[2020-05-05 15:54] LABS: UA COLLECTION TYPE FOLEY CATH
[2020-05-05 16:05] LABS: BACTERIA,URINE FEW /HPF (Neg); RBC,URINE TNTC /HPF (0-2); WBC,URINE 0-4 /HPF (0-4)
[2020-05-05 16:06] LABS: MUCUS STRANDS NONE SEEN /LPF (Neg); SQUAMOUS EPITHELIAL CELL,UR NONE SEEN /LPF (FEW); TRANSITIONAL EPI CELLS,URINE FEW /HPF
[2020-05-05] MEDS: LORazepam 2 mg/ml vial IV PRN (20:32)
[2020-05-05] MEDS ORDERED: diatr meglu/diatrizoate 30ml oral sol.-(3 dose) bottle NG ONE (22:00)
[2020-05-06] VITALS (25 sets, daily range): BP systolic 117–154; BP diastolic 64–87
[2020-05-06] MEDS: LORazepam 2 mg/ml vial IV PRN (01:34)
[2020-05-06] MEDS: hydrocortisone sod succ/PF 100mg/2ml inj. IV SCH ×4 (01:34→19:19)
--- NOTE | 2020-05-06 06:15 | NUR ---
Problems reprioritized. Patient report given, questions answered & plan of care reviewed with Serafin MAURICE.
[2020-05-06 06:47] LABS: BASOPHILS % (AUTO) 0.3 % (0-1); EOSINOPHILS % (AUTO) 0 % (0-6); HEMATOCRIT 23.2 % (42.0-52.0); HEMOGLOBIN 7.9 g/dl (14.0-17.9); LYMPHOCYTES # (AUTO) 0.4 X10'3 (1.1-4.8); LYMPHOCYTES % (AUTO) 2.5 % (21-51); MEAN CORPUSCULAR HEMOGLOBIN 32.8 PG (27.0-31.0); MEAN CORPUSCULAR HGB CONC 34.1 g/dL (33.0-36.5); MEAN CORPUSCULAR VOLUME 96.3 FL (78-98); MEAN PLATELET VOLUME 8.7 FL (7.4-10.4); MONOCYTES # (AUTO) 1.3 X10'3 (0-0.9); MONOCYTES % (AUTO) 8.1 % (2-12); NEUTROPHILS # (AUTO) 14.6 X10'3 (1.8-7.7); NEUTROPHILS % (AUTO) 89.1 % (42-75); PLATELET COUNT 365 X10'3 (140-440); RED BLOOD COUNT 2.41 X10'6 (4.70-6.10); RED CELL DISTRIBUTION WIDTH 18.7 % (11.5-14.5); WHITE BLOOD COUNT 16.4 X10'3 (4.5-11.0)
[2020-05-06 07:12] LABS: PLATELET ESTIMATE NORMAL; POLYCHROMASIA FEW
[2020-05-06 07:13] LABS: ANISOCYTOSIS 2+; TARGET CELLS FEW
[2020-05-06 07:17] LABS: ALANINE AMINOTRANSFERASE 164 U/L (12-78); ALBUMIN 1.7 G/DL (3.4-5.0); ALKALINE PHOSPHATASE 139 IU/L (46-116); ANION GAP 12 (8-16); ASPARTATE AMINO TRANSFERASE 103 U/L (10-37); BILIRUBIN,TOTAL 3.4 MG/DL (0.1-1.0); BLOOD UREA NITROGEN 84 MG/DL (7-18); BUN/CREATININE RATIO 14.8 (5.4-32.0); CALCIUM 7.7 MG/DL (8.5-10.1); CHLORIDE 99 MMOL/L (99-107); CREATININE 5.69 MG/DL (0.60-1.10); GLUCOSE 95 MG/DL (70-104); MAGNESIUM 2.2 MG/DL (1.5-2.4); POTASSIUM 4.6 MMOL/L (3.5-5.1); SODIUM 134 MMOL/L (135-145); TOTAL CARBON DIOXIDE 22.7 MMOL/L (24-32); eGFR 11 ML/MIN
[2020-05-06 07:18] LABS: ALBUMIN/GLOBULIN RATIO 0.6 (1.1-1.5); PHOSPHORUS 7.1 MG/DL (2.3-4.5); TOTAL PROTEIN 4.5 G/DL (6.4-8.2)
[2020-05-06] MEDS: mineral oil/petrolatum ophthal oint EACHEYE SCH ×4 (07:21→19:19)
[2020-05-06] MEDS: heparin, porcine 5000 units/ml vial SQ SCH (08:00)
[2020-05-06 10:06] LABS: HEMOGLOBIN 7.6 g/dl (14.0-17.9); MEAN CORPUSCULAR HEMOGLOBIN 33.3 PG (27.0-31.0); MEAN CORPUSCULAR HGB CONC 34.6 g/dL (33.0-36.5); MEAN CORPUSCULAR VOLUME 96.1 FL (78-98); PLATELET COUNT 337 X10'3 (140-440); RED BLOOD COUNT 2.28 X10'6 (4.70-6.10); WHITE BLOOD COUNT 15.3 X10'3 (4.5-11.0)
[2020-05-06] MEDS: aspirin 325mg tablet OGT SCH (10:23)
--- NOTE | 2020-05-06 10:25 | NUR ---
Lety Carlson called with critical Hct 22. Lety called earlier as pt TDC site was found bleeding today and continues to bleed after dressing change and pressure applied. Hemogram drawn, protonix gtt ordered, PT/PTT drawn.
[2020-05-06] MEDS: pantoprazole 40MG/NS 100ML BAG 100 ML IV SCH ×3 (10:51→20:37)
[2020-05-06] MEDS: lactobacillus rhamnosus 10,000 MMU CELLS/CAPSULE PO SCH ×2 (10:51→19:21)
[2020-05-06 11:10] LABS: PARTIAL THROMBOPLASTIN TIME 39 SECONDS (22-32)
--- NOTE | 2020-05-06 12:23 | NUR ---
Pts pressure dressing changed 3 times today for continued oozing blood from TDC site. Pt wiggles around in bed frequently. Sitter at bedside.
--- NOTE | 2020-05-06 13:42 | NUR ---
Dressing changed again and new pressure dressing placed. Clot had formed but still oozing.
[2020-05-06 15:53] LABS: HEMOGLOBIN 7.4 g/dl (14.0-17.9); MEAN CORPUSCULAR HEMOGLOBIN 33.3 PG (27.0-31.0); MEAN CORPUSCULAR HGB CONC 34.6 g/dL (33.0-36.5); MEAN CORPUSCULAR VOLUME 96.1 FL (78-98); MEAN PLATELET VOLUME 7.8 FL (7.4-10.4); PLATELET COUNT 346 X10'3 (140-440); RED BLOOD COUNT 2.22 X10'6 (4.70-6.10); RED CELL DISTRIBUTION WIDTH 18.8 % (11.5-14.5); WHITE BLOOD COUNT 14.6 X10'3 (4.5-11.0)
[2020-05-06 15:58] LABS: HEMATOCRIT 21.4 % (42.0-52.0)
--- NOTE | 2020-05-06 16:09 | NUR ---
notified primary RNSerafin, pt's critical Hct of 21.4 and Hgb of 7.4
--- NOTE | 2020-05-06 16:14 | NUR ---
Lab called with critical Hct 21.4 hgb 7.4 called to Lety ELAM. No New orders
--- NOTE | 2020-05-06 18:15 | NUR ---
Patient in room CICU 2013. I have received report from Serafin MAURICE and had the opportunity to ask questions and assume patient care. Patient is restless in bed, he really wants to leave. TDC is covered but slowly oozing blood. Protonix drip running at 20mL/hr. Will continue to monitor closely.
--- NOTE | 2020-05-06 18:37 | NUR ---
Problems reprioritized. Patient report given, questions answered & plan of care reviewed with Brinda MAURICE.
[2020-05-06] MEDS: morphine 4 MG/ML inj SYRINge IV PRN ×2 (19:20→23:36)
[2020-05-07] VITALS (35 sets, daily range): BP systolic 120–173; BP diastolic 41–84
[2020-05-07] MEDS ORDERED: LORazepam 2 mg/ml vial IM ONE (01:00)
[2020-05-07] MEDS ORDERED: LORazepam 2 mg/ml vial IV PRN (01:00)
[2020-05-07] MEDS: pantoprazole 40MG/NS 100ML BAG 100 ML IV SCH ×5 (02:14→23:11)
[2020-05-07] MEDS: mineral oil/petrolatum ophthal oint EACHEYE SCH ×2 (02:15→08:00)
[2020-05-07] MEDS: hydrocortisone sod succ/PF 100mg/2ml inj. IV SCH ×2 (02:16→08:38)
[2020-05-07 04:12] LABS: BASOPHILS % (AUTO) 0.2 % (0-1); EOSINOPHILS % (AUTO) 0 % (0-6); LYMPHOCYTES # (AUTO) 0.4 X10'3 (1.1-4.8); LYMPHOCYTES % (AUTO) 3.2 % (21-51); MEAN CORPUSCULAR HEMOGLOBIN 32.3 PG (27.0-31.0); MEAN CORPUSCULAR HGB CONC 33.9 g/dL (33.0-36.5); MEAN CORPUSCULAR VOLUME 95.4 FL (78-98); MEAN PLATELET VOLUME 8.3 FL (7.4-10.4); MONOCYTES # (AUTO) 0.9 X10'3 (0-0.9); MONOCYTES % (AUTO) 6.2 % (2-12); NEUTROPHILS # (AUTO) 12.5 X10'3 (1.8-7.7); NEUTROPHILS % (AUTO) 90.4 % (42-75); PLATELET COUNT 384 X10'3 (140-440); RED BLOOD COUNT 2.14 X10'6 (4.70-6.10); RED CELL DISTRIBUTION WIDTH 18.4 % (11.5-14.5); WHITE BLOOD COUNT 13.8 X10'3 (4.5-11.0)
[2020-05-07 04:23] LABS: HEMATOCRIT 20.4 % (42.0-52.0); HEMOGLOBIN 6.9 g/dl (14.0-17.9)
[2020-05-07 04:29] LABS: ALANINE AMINOTRANSFERASE 142 U/L (12-78); ALBUMIN 1.7 G/DL (3.4-5.0); ALKALINE PHOSPHATASE 113 IU/L (46-116); BILIRUBIN,TOTAL 3.3 MG/DL (0.1-1.0); BLOOD UREA NITROGEN 107 MG/DL (7-18); BUN/CREATININE RATIO 15.6 (5.4-32.0); CALCIUM 7.4 MG/DL (8.5-10.1); CHLORIDE 95 MMOL/L (99-107); CREATININE 6.84 MG/DL (0.60-1.10); GLUCOSE 78 MG/DL (70-104); TOTAL CARBON DIOXIDE 20.1 MMOL/L (24-32); eGFR 9 ML/MIN
[2020-05-07 04:40] LABS: ASPARTATE AMINO TRANSFERASE 97 U/L (10-37)
--- NOTE | 2020-05-07 04:40 | NUR ---
CALLED DR. SAMPSON Pt. has critical H&H (Hgb 6.9 Hct 20.4), orders for PRBC's. Will do updated type and screen.
[2020-05-07 04:42] LABS: ALBUMIN/GLOBULIN RATIO 0.7 (1.1-1.5); ANION GAP 18 (8-16); PHOSPHORUS 9.2 MG/DL (2.3-4.5); POTASSIUM 4.9 MMOL/L (3.5-5.1); SODIUM 133 MMOL/L (135-145)
--- NOTE | 2020-05-07 05:39 | NUR ---
called Oli PEDIATRIC GENETIC COUNSELOR regarding pts elevated temp, new orders received for burch cultures, no abo ordered at this time as Dmitri Rodriguez will review the pts condition
[2020-05-07 06:15] LABS: COLOR,URINE YELLOW (Yellow); GLUCOSE, URINE NEGATIVE (Neg); KETONES,URINE NEGATIVE (Neg); LEUKOCYTE ESTERASE ,URINE NEGATIVE (Neg); NITRITES, URINE NEGATIVE (Neg); OCCULT BLOOD,URINE LARGE (Neg); PROTEIN,URINE TRACE mg/dl (Neg); UA COLLECTION TYPE CLN CATCH MIDSTREAM; UROBILINOGEN,URINE 0.2 E.U/dL (0.2-1.0)
[2020-05-07 06:16] LABS: CLARITY,URINE SLIGHTLY CLOUDY (Clear)
[2020-05-07 06:23] LABS: BACTERIA,URINE NONE SEEN /HPF (Neg); MUCUS STRANDS FEW /LPF (Neg); SQUAMOUS EPITHELIAL CELL,UR FEW /LPF (FEW); WBC CLUMPS,URINE FEW /HPF (NEGATIVE); WBC,URINE 0-4 /HPF (0-4)
--- NOTE | 2020-05-07 06:30 | NUR ---
Patient in room CICU 2012. I have received report from Brinda MAURICE and had the opportunity to ask questions and assume patient care.
[2020-05-07] MEDS: morphine 4 MG/ML inj SYRINge IV PRN ×3 (08:40→20:02)
[2020-05-07] MEDS: lactobacillus rhamnosus 10,000 MMU CELLS/CAPSULE PO SCH ×2 (08:55→20:01)
[2020-05-07] MEDS ORDERED: gelatin sponge, absorbable (Gelfoam 12-7MM) sponge TP ONE ×2 (12:30→20:35)
[2020-05-07] MEDS ORDERED: normal saline 1000ml 100 ML IV PRN (13:43)
[2020-05-07] MEDS ORDERED: heparin 1,000 units/ml 10ml inj HE ONE (13:50)
[2020-05-07 14:46] LABS: HEMATOCRIT 22.1 % (42.0-52.0); HEMOGLOBIN 7.7 g/dl (14.0-17.9); MEAN CORPUSCULAR HEMOGLOBIN 32.9 PG (27.0-31.0); MEAN CORPUSCULAR HGB CONC 34.7 g/dL (33.0-36.5); MEAN CORPUSCULAR VOLUME 94.8 FL (78-98); MEAN PLATELET VOLUME 7.8 FL (7.4-10.4); PLATELET COUNT 333 X10'3 (140-440); RED BLOOD COUNT 2.33 X10'6 (4.70-6.10); RED CELL DISTRIBUTION WIDTH 18.3 % (11.5-14.5); WHITE BLOOD COUNT 10.5 X10'3 (4.5-11.0)
[2020-05-07] MEDS ORDERED: desmopressin inj. 25 MCG in normal saline 100ml IV soln 93.75 ML IV ONE (15:00)
[2020-05-07 15:05] LABS: D-DIMER 4.27 MG/L FEU (0-0.50)
[2020-05-07] MEDS: acetaminophen 325mg/10.15ml oral unit dose solution OGT PRN (15:17)
[2020-05-07 17:30] LABS: PARTIAL THROMBOPLASTIN TIME 43 SECONDS (22-32)
--- NOTE | 2020-05-07 18:00 | NUR ---
Notified Dr. Ruiz of continued excessive bleeding and trending H/H. Notified Dr. Edgar of continued oozing from TDC. Requested advise on if TDC should be left in place and what plan is for bleeding. Kalie Carlson notified and ordered chest xray and she came to view patient's bleeding. Dressing changed at 1430 and 1800 and continued bleeding showed to RN yvonne.
--- NOTE | 2020-05-07 18:31 | NUR ---
Problems reprioritized. Patient report given, questions answered & plan of care reviewed with Lisa RN.
--- NOTE | 2020-05-07 18:43 | NUR ---
Patient in room CICU 2013. I have received report from Mariana MAURICE and had the opportunity to ask questions and assume patient care.
[2020-05-07] MEDS ORDERED: hydrocortisone sod succ/PF 100mg/2ml inj. IV SCH (20:00)
[2020-05-07 20:40] LABS: HEMATOCRIT 24.1 % (42.0-52.0); HEMOGLOBIN 8.4 g/dl (14.0-17.9); MEAN CORPUSCULAR HEMOGLOBIN 32.5 PG (27.0-31.0); MEAN CORPUSCULAR HGB CONC 34.8 g/dL (33.0-36.5); MEAN CORPUSCULAR VOLUME 93.4 FL (78-98); MEAN PLATELET VOLUME 7.6 FL (7.4-10.4); PLATELET COUNT 266 X10'3 (140-440); RED BLOOD COUNT 2.58 X10'6 (4.70-6.10); RED CELL DISTRIBUTION WIDTH 17.2 % (11.5-14.5); WHITE BLOOD COUNT 6.8 X10'3 (4.5-11.0)
[2020-05-07 23:31] LABS: PARTIAL THROMBOPLASTIN TIME 49 SECONDS (22-32)
[2020-05-08] VITALS (36 sets, daily range): BP systolic 76–178; BP diastolic 24–83
[2020-05-08] MEDS: morphine 4 MG/ML inj SYRINge IV PRN ×2 (00:29→07:28)
[2020-05-08] MEDS ORDERED: gelatin sponge, absorbable (Gelfoam 12-7MM) sponge TP ONE (04:20)
[2020-05-08] MEDS: pantoprazole 40MG/NS 100ML BAG 100 ML IV SCH ×4 (04:56→22:25)
[2020-05-08 05:47] LABS: BASOPHILS % (AUTO) 0 % (0-1); EOSINOPHILS % (AUTO) 0.3 % (0-6); HEMOGLOBIN 7.1 g/dl (14.0-17.9); LYMPHOCYTES # (AUTO) 0.2 X10'3 (1.1-4.8); LYMPHOCYTES % (AUTO) 5.9 % (21-51); MEAN CORPUSCULAR VOLUME 94.3 FL (78-98); MEAN PLATELET VOLUME 8.1 FL (7.4-10.4); NEUTROPHILS # (AUTO) 2.7 X10'3 (1.8-7.7); NEUTROPHILS % (AUTO) 92.8 % (42-75); PLATELET COUNT 251 X10'3 (140-440); RED BLOOD COUNT 2.16 X10'6 (4.70-6.10); RED CELL DISTRIBUTION WIDTH 17.9 % (11.5-14.5); WHITE BLOOD COUNT 2.9 X10'3 (4.5-11.0)
[2020-05-08 05:57] LABS: HEMATOCRIT 20.4 % (42.0-52.0)
--- NOTE | 2020-05-08 06:04 | NUR ---
critical lab at 0553, HBG 7.1, HCT 20.4 called Sergio Rodriguez who ordered 1 PRBC.
--- NOTE | 2020-05-08 06:16 | NUR ---
Patient in room CICU 2013. I have received report from Lisa and had the opportunity to ask questions and assume patient care.
--- NOTE | 2020-05-08 06:22 | NUR ---
Problems reprioritized. Patient report given, questions answered & plan of care reviewed with Karoline MAURICE.
[2020-05-08 06:23] LABS: ALANINE AMINOTRANSFERASE 134 U/L (12-78); ALBUMIN 1.5 G/DL (3.4-5.0); ALKALINE PHOSPHATASE 125 IU/L (46-116); ANION GAP 22 (8-16); ASPARTATE AMINO TRANSFERASE 75 U/L (10-37); BILIRUBIN,TOTAL 3.9 MG/DL (0.1-1.0); BLOOD UREA NITROGEN 134 MG/DL (7-18); CALCIUM 7.2 MG/DL (8.5-10.1); CHLORIDE 91 MMOL/L (99-107); CREATININE 8.38 MG/DL (0.60-1.10); MAGNESIUM 1.6 MG/DL (1.5-2.4); PREALBUMIN 16.9 MG/DL (19-36); SODIUM 128 MMOL/L (135-145); eGFR 7 ML/MIN
[2020-05-08 06:26] LABS: PHOSPHORUS 9.7 MG/DL (2.3-4.5); TOTAL PROTEIN 3.9 G/DL (6.4-8.2)
[2020-05-08] MEDS: dextrose 50%-water 50ml dispensing syringe IV PRN ×8 (06:53→22:13)
[2020-05-08 06:57] LABS: ANISOCYTOSIS 1+; PLATELET ESTIMATE NORMAL; TOTAL CELLS COUNTED 100
[2020-05-08 07:04] LABS: TOXIC VACUOLATION FEW
[2020-05-08 07:05] LABS: TOXIC GRANULATION 2+
[2020-05-08 07:13] LABS: GLUCOSE 34 MG/DL (70-104); POTASSIUM 6.2 MMOL/L (3.5-5.1); TOTAL CARBON DIOXIDE 14.9 MMOL/L (24-32)
[2020-05-08 07:14] LABS: ALBUMIN/GLOBULIN RATIO 0.6 (1.1-1.5)
[2020-05-08 07:41] LABS: ABG BASE EXCESS -15.9 mmol/L (-2.0-2.0); ABG HCO3 7.2 mmol/L (22.0-26.0); ABG OXYGEN SATURATION 84.9 % (94-97); ABG PCO2 (T) 12.7 mmHg (35.0-48.0); ABG PO2 (T) 60.3 mmHg (75.0-100.0); ALLEN'S TEST Modified; FCOHb 0.3 % (0.0-3.9); FMetHb 0.3 % (0.0-1.5); FO2Hb 84.4 % (94-97); TOTAL HEMOGLOBIN 7.4 G/dl (14.0-18.0)
[2020-05-08] MEDS ORDERED: desmopressin inj. 25 MCG in normal saline 100ml IV soln 100 ML IV ONE (08:00)
[2020-05-08] MEDS ORDERED: DEXTROSE 20% IN WATER 500mL 500 ML IV SCH (08:00)
[2020-05-08] MEDS: lactobacillus rhamnosus 10,000 MMU CELLS/CAPSULE PO SCH (08:00)
[2020-05-08] MEDS ORDERED: piperacillin/tazo 3.375gm/50ml 50 ML IV SCH (08:00)
[2020-05-08] MEDS ORDERED: heparin 1,000 units/ml 10ml inj HE ONE ×2 (08:00)
[2020-05-08] MEDS: hydrocortisone sod succ/PF 100mg/2ml inj. IV SCH ×2 (08:22→16:26)
[2020-05-08 08:38] LABS: PLATELET COUNT 262 X10'3 (140-440)
[2020-05-08] MEDS ORDERED: tranexamic acid inj. 800 MG in normal saline 100ml IV soln 100 ML IV ONE (08:40)
[2020-05-08] MEDS ORDERED: fentaNYL/PF 50MCG/1 ML 2ML syringe ONE ×2 (08:58→11:32)
[2020-05-08] MEDS ORDERED: midazolam 2 mg/2 ml injection ONE (08:58)
[2020-05-08] MEDS ORDERED: PHYTONADIONE IV ONE (09:30)
[2020-05-08] MEDS ORDERED: NORMAL SALINE IV ONE (09:30)
[2020-05-08 09:39] LABS: D-DIMER 10.59 MG/L FEU (0-0.50)
[2020-05-08] MEDS ORDERED: Neutra Phos packet OGT PRN (09:44)
[2020-05-08 09:48] LABS: PARTIAL THROMBOPLASTIN TIME 73 SECONDS (22-32)
[2020-05-08] MEDS: NORepinephrine 8mg/ 250ml NS 250 ML IV SCH ×4 (10:00→18:43)
[2020-05-08] MEDS ORDERED: NORepinephrine 8mg/ 250ml NS 250 ML IV ONE (10:08)
[2020-05-08] MEDS ORDERED: albuterol 2.5 MG/3 ML nebule NEB PRN (10:15)
[2020-05-08] MEDS ORDERED: vancomycin/NS 1 GM ADD-VANTAGE 250 ML IV ONE ×2 (10:20→11:15)
[2020-05-08] MEDS ORDERED: dexmedetomidin/NS 400mcg/100ml 100 ML IV SCH (10:20)
[2020-05-08] MEDS ORDERED: calcium chloride 100 MG/1 ML inj IV ONE (10:20)
[2020-05-08] MEDS ORDERED: calcium chloride inj. 1,000 MG in normal saline 100ml IV soln 90 ML IV ONE (10:40)
[2020-05-08] MEDS ORDERED: calcium chloride inj. 1,000 MG in normal saline 100ml IV soln 100 ML IV ONE (10:42)
[2020-05-08] MEDS ORDERED: vancomycin/NS 1 GM ADD-VANTAGE 250 ML IV PRN (10:55)
[2020-05-08] MEDS ORDERED: etomidate 2mg/ml inj. ONE (11:00)
[2020-05-08] MEDS ORDERED: rocuronium 10mg/ml inj IV ONE (11:00)
--- NOTE | 2020-05-08 11:19 | NUR ---
Reassessment: Pt re-intubated. Per nursing notes had critically low Hgb/Hct , had bleeding from TDC. Sodium low, K is high, phos is high, had very low blood glucose down to 18 now receiving IV 20% dextrose/NS. MAP is 55, receiving norepinephrine. Will follow and monitor needs for TF on vent. Recommend: 1. IF tube feeding recommend using nepro at 55 ml/hr will provide 1320 ml volume, 2376 cals, 107 gram protein, 960 ml free water. 2. IF tube feeding additional water flush per water resources technical officer; on HD 3. IF tube feeding PALB Q /; Daily weights 4. routine bowel care, prokinetic and opiod agonist antagonist Addendum: 05/08/20 at [address] Amended: Links added.
[2020-05-08 11:20] LABS: ABG BASE EXCESS -9.7 mmol/L (-2.0-2.0); ABG HCO3 14.2 mmol/L (22.0-26.0); ABG PCO2 (T) 25.4 mmHg (35.0-48.0); ABG PO2 (T) 60.6 mmHg (75.0-100.0); FCOHb 0.3 % (0.0-3.9); FMetHb 0.1 % (0.0-1.5); FO2Hb 90.6 % (94-97); PEEP 5 cm H2O; RESPIRATORY RATE 20 b/min; TIDAL VOLUME 550 mL; TOTAL HEMOGLOBIN 11.5 G/dl (14.0-18.0)
[2020-05-08] MEDS ORDERED: LIDOcaine Viscous 15ml cup ONE (11:32)
[2020-05-08] MEDS ORDERED: MIDAZolam 5mg/5ml vial ONE (11:32)
[2020-05-08] MEDS ORDERED: epiNEPHrine 0.1mg/ml 10ml syringe ONE (11:33)
[2020-05-08] MEDS: dexmedetomidine inj. 400 MCG in dextrose 5%-water 100 ML IV SCH ×2 (11:35→22:53)
[2020-05-08 12:10] LABS: OXYGEN SATURATION (MIXED VEN) 66.4 % (60-80); PO2 MIXED VENOUS (TEMP COR) 35.7 mmHg (35-46)
[2020-05-08] MEDS: vasopressin inj. 40 UNIT in normal saline 50ml IV soln 38 ML IV SCH ×2 (12:43→18:00)
[2020-05-08] MEDS ORDERED: dextrose 50%-water 250 ML IV SCH (13:25)
[2020-05-08] MEDS: LORazepam 2 mg/ml vial IV PRN ×2 (13:45→16:25)
[2020-05-08 13:50] LABS: HEMOGLOBIN 8.1 g/dl (14.0-17.9); LYMPHOCYTES # (AUTO) 0.2 X10'3 (1.1-4.8); NEUTROPHILS # (AUTO) 1.3 X10'3 (1.8-7.7); RED CELL DISTRIBUTION WIDTH 15.8 % (11.5-14.5); WHITE BLOOD COUNT 1.6 X10'3 (4.5-11.0)
[2020-05-08 13:52] LABS: BASOPHILS % (AUTO) 0.2 % (0-1); EOSINOPHILS % (AUTO) 1.5 % (0-6); HEMATOCRIT 23.8 % (42.0-52.0); LYMPHOCYTES % (AUTO) 14.2 % (21-51); MEAN CORPUSCULAR HEMOGLOBIN 32.3 PG (27.0-31.0); MEAN CORPUSCULAR HGB CONC 34.1 g/dL (33.0-36.5); MEAN CORPUSCULAR VOLUME 94.6 FL (78-98); MEAN PLATELET VOLUME 7.9 FL (7.4-10.4); NEUTROPHILS % (AUTO) 82.1 % (42-75); RED BLOOD COUNT 2.52 X10'6 (4.70-6.10)
[2020-05-08 14:03] LABS: ALANINE AMINOTRANSFERASE 84 U/L (12-78); ALBUMIN 1.3 G/DL (3.4-5.0); ALBUMIN/GLOBULIN RATIO 0.6 (1.1-1.5); ALKALINE PHOSPHATASE 96 IU/L (46-116); ANION GAP 14 (8-16); ASPARTATE AMINO TRANSFERASE 86 U/L (10-37); BILIRUBIN,TOTAL 2.8 MG/DL (0.1-1.0); BLOOD UREA NITROGEN 48 MG/DL (7-18); BUN/CREATININE RATIO 12.6 (5.4-32.0); CHLORIDE 102 MMOL/L (99-107); CREATINE KINASE 341 U/L (39-308); GLUCOSE 53 MG/DL (70-104); POTASSIUM 3.9 MMOL/L (3.5-5.1); SODIUM 135 MMOL/L (135-145); TOTAL CARBON DIOXIDE 19.3 MMOL/L (24-32); TOTAL PROTEIN 3.4 G/DL (6.4-8.2); eGFR 18 ML/MIN
[2020-05-08 14:11] LABS: PLATELET COUNT 130 X10'3 (140-440)
[2020-05-08 14:12] LABS: PARTIAL THROMBOPLASTIN TIME 61 SECONDS (22-32)
[2020-05-08] MEDS: dextrose 50%-water 250 ML IV SCH ×3 (14:29→19:38)
[2020-05-08] MEDS: albuterol 2.5 MG/3 ML nebule NEB SCH ×3 (16:00→23:05)
[2020-05-08] MEDS: FENTANYL-0.9 % NACL/PF 100 ML IV PRN ×2 (16:13→21:52)
[2020-05-08] MEDS: midazolam 100mg in NS 100ml 100 ML IV PRN ×2 (16:15→22:19)
[2020-05-08] MEDS: meropenem inj 1 GM in normal saline 100ml IV soln 100 ML IV SCH (16:25)
[2020-05-08] MEDS ORDERED: acetaminophen 1,000mg/100ml IV 100 ML IV STA (18:04)
[2020-05-08 18:20] LABS: BASOPHILS % (AUTO) 0.4 % (0-1); EOSINOPHILS % (AUTO) 1.5 % (0-6); HEMATOCRIT 24.1 % (42.0-52.0); HEMOGLOBIN 8.1 g/dl (14.0-17.9); LYMPHOCYTES # (AUTO) 0.1 X10'3 (1.1-4.8); LYMPHOCYTES % (AUTO) 8.8 % (21-51); MEAN CORPUSCULAR HEMOGLOBIN 31.9 PG (27.0-31.0); MEAN CORPUSCULAR HGB CONC 33.5 g/dL (33.0-36.5); MEAN CORPUSCULAR VOLUME 95.1 FL (78-98); MEAN PLATELET VOLUME 8.3 FL (7.4-10.4); NEUTROPHILS # (AUTO) 0.7 X10'3 (1.8-7.7); NEUTROPHILS % (AUTO) 88.3 % (42-75); PLATELET COUNT 78 X10'3 (140-440); RED BLOOD COUNT 2.53 X10'6 (4.70-6.10); RED CELL DISTRIBUTION WIDTH 16.4 % (11.5-14.5)
--- NOTE | 2020-05-08 18:27 | NUR ---
[id number] Received report from Lisa, frank care, patient appears to have deteriorated, garbled talk nonsensical, was able to discern he was in pain. Started receiving critical labs. addressed BGL immediately. Pt breathing shallow and over 40, eyes jaudiced. Right eye deviates to the right (per other nurses this is not new). wide area of discoloration to abdomen, large shaped U area that is pale in the middle and red along the margins, pinkness extends down legs. Terribly edemic and weeping. DC'd PIV from left AC that is infiltrated. Large loose bloody stool incontinent. 0900 MD here to intubate. ET tube size 8 and 25 at the teeth placed. FFP infused by nursing, 2 units PRBC by dialysis. OG placed. MD requested that GI leave the bethpage sum in when EGD done. patient continues to overbreath the vent, stacks breath until vent reads apneic order received to give ativan in addition to precedex, fent and versed. Dialysis completed appos 1230 unable to pull fluid was 500 cc positive after dialysis. EGD performed at same time as dialysis, no bleed in upper scope noted. Continue to person blood pressure even with addition of levophed and vasopressin. [id number] BGL continues to be low, received multiple D50 pushes as well as D20 IV gtt that was increased to D50 IV gtt. Patient code status changed to no compression no defibrillation after MD spoke with via phone. 1400 Nursing spoke with re patient status and it was arranged for her to visit at bedside for 15 minutes, MD spoke with family at bedside when they arrived. BP remains very labile and pressor dependent. See multiple lab draw results for criticals and changes, see MAR for med changes. 1830Reported off to Jerman Robert RN.
--- NOTE | 2020-05-08 18:30 | NUR ---
1830:Patient in room CICU 2012. I have received report from Karoline MAURICE and had the opportunity to ask questions and assume patient care. Patient tachypneic, tachycardic, febrile. Awaiting 1800 lab results.
[2020-05-08 18:32] LABS: ALANINE AMINOTRANSFERASE 71 U/L (12-78); ALBUMIN/GLOBULIN RATIO 0.5 (1.1-1.5); ALKALINE PHOSPHATASE 103 IU/L (46-116); ANION GAP 23 (8-16); ASPARTATE AMINO TRANSFERASE 91 U/L (10-37); BILIRUBIN,TOTAL 2.1 MG/DL (0.1-1.0); BLOOD UREA NITROGEN 58 MG/DL (7-18); BUN/CREATININE RATIO 11.9 (5.4-32.0); CALCIUM 6.8 MG/DL (8.5-10.1); CHLORIDE 101 MMOL/L (99-107); CREATINE KINASE 348 U/L (39-308); CREATININE 4.89 MG/DL (0.60-1.10); POTASSIUM 4.7 MMOL/L (3.5-5.1); SODIUM 135 MMOL/L (135-145); eGFR 13 ML/MIN
[2020-05-08 18:41] LABS: GLUCOSE 41 MG/DL (70-104); TOTAL CARBON DIOXIDE 10.8 MMOL/L (24-32); WHITE BLOOD COUNT 0.9 X10'3 (4.5-11.0)
[2020-05-08 18:42] LABS: PARTIAL THROMBOPLASTIN TIME 86 SECONDS (22-32)
[2020-05-08] MEDS ORDERED: NORepinephrine inj. 32 MG in normal saline 250ml IV soln 218 ML IV SCH (19:00)
--- NOTE | 2020-05-08 20:35 | NUR ---
Ventilator still triggering alarm:"patient circuit occluded" and not ventilating patient after change out. RT at bedside, able to resume ventilating. Monitoring closely, will change out ventilator if necessary. Tachypnea decreased with increasing sedation, RR now 26. Titrating pressors to maintain MAP greater than 65.
[2020-05-08 22:23] LABS: EOSINOPHILS # (AUTO) 0.1 X10'3 (0-0.9); HEMATOCRIT 24.4 % (42.0-52.0); HEMOGLOBIN 8.2 g/dl (14.0-17.9); LYMPHOCYTES # (AUTO) 0.1 X10'3 (1.1-4.8); MEAN CORPUSCULAR HEMOGLOBIN 32.3 PG (27.0-31.0); MEAN CORPUSCULAR HGB CONC 33.5 g/dL (33.0-36.5); MEAN CORPUSCULAR VOLUME 96.5 FL (78-98); NEUTROPHILS # (AUTO) 1.7 X10'3 (1.8-7.7); RED BLOOD COUNT 2.53 X10'6 (4.70-6.10); WHITE BLOOD COUNT 1.9 X10'3 (4.5-11.0)
[2020-05-08 22:25] LABS: BASOPHILS % (AUTO) 0.2 % (0-1); EOSINOPHILS % (AUTO) 6.7 % (0-6); LYMPHOCYTES % (AUTO) 4.4 % (21-51); MEAN PLATELET VOLUME 7.7 FL (7.4-10.4); MONOCYTES % (AUTO) 0.8 % (2-12); NEUTROPHILS % (AUTO) 87.9 % (42-75); RED CELL DISTRIBUTION WIDTH 16.4 % (11.5-14.5)
[2020-05-08 22:35] LABS: ALBUMIN 0.9 G/DL (3.4-5.0); ALBUMIN/GLOBULIN RATIO 0.5 (1.1-1.5); ALKALINE PHOSPHATASE 110 IU/L (46-116); ANION GAP 24 (8-16); ASPARTATE AMINO TRANSFERASE 107 U/L (10-37); BLOOD UREA NITROGEN 61 MG/DL (7-18); BUN/CREATININE RATIO 11.9 (5.4-32.0); CALCIUM 6.9 MG/DL (8.5-10.1); CHLORIDE 101 MMOL/L (99-107); CREATINE KINASE 417 U/L (39-308); CREATININE 5.14 MG/DL (0.60-1.10); GLUCOSE 67 MG/DL (70-104); POTASSIUM 4.8 MMOL/L (3.5-5.1); SODIUM 134 MMOL/L (135-145); TOTAL PROTEIN 2.8 G/DL (6.4-8.2); eGFR 13 ML/MIN
[2020-05-08 22:39] LABS: TOTAL CARBON DIOXIDE 9.4 MMOL/L (24-32)
--- NOTE | 2020-05-08 22:44 | NUR ---
hemodynamically unstable Addendum: 05/08/20 at 2244 by Lori Robert RN Amended: Links added.
[2020-05-08 23:07] LABS: PLATELET COUNT 18 X10'3 (140-440)
[2020-05-08 23:20] LABS: ABG BASE EXCESS -20.3 mmol/L (-2.0-2.0); ABG OXYGEN SATURATION 93.7 % (94-97); ABG PCO2 (T) 22.2 mmHg (35.0-48.0); ABG PO2 (T) 97.2 mmHg (75.0-100.0); FCOHb 0.1 % (0.0-3.9); FMetHb 0.4 % (0.0-1.5); FO2Hb 93.2 % (94-97); PATIENT TEMPERATURE 38.2; PEEP 5 cm H2O; RESPIRATORY RATE 20 b/min; TIDAL VOLUME 550 mL; TOTAL HEMOGLOBIN 8.2 G/dl (14.0-18.0)
[2020-05-08 23:25] LABS: ALANINE AMINOTRANSFERASE 70 U/L (12-78)
[2020-05-08] MEDS ORDERED: sodium bicarbonate (8.4%) inj. 150 MEQ in dextrose 5%-water 1,000 ML IV SCH (23:30)
[2020-05-08] MEDS ORDERED: sodium bicarbonate (8.4%) 1 mEq/ml syringe IV ONE (23:30)
--- NOTE | 2020-05-08 23:30 | NUR ---
Current labs reviewed. Dmitri Rodriguez updated and notified of critical values. Orders received
[2020-05-09] VITALS (18 sets, daily range): BP systolic 88–137; BP diastolic 33–53
[2020-05-09] MEDS: FENTANYL-0.9 % NACL/PF 100 ML IV PRN ×5 (00:26→12:15)
[2020-05-09] MEDS: pantoprazole 40MG/NS 100ML BAG 100 ML IV SCH ×4 (01:00→08:47)
[2020-05-09] MEDS: meropenem inj 1 GM in normal saline 100ml IV soln 100 ML IV SCH ×2 (01:18→07:10)
[2020-05-09] MEDS: hydrocortisone sod succ/PF 100mg/2ml inj. IV SCH ×2 (01:18→07:10)
[2020-05-09] MEDS: NORepinephrine inj. 32 MG in normal saline 250ml IV soln 218 ML IV SCH ×2 (01:50→05:18)
[2020-05-09] MEDS: dextrose 50%-water 250 ML IV SCH ×2 (02:03→08:31)
--- NOTE | 2020-05-09 02:37 | NUR ---
Tachypnea decreased. No further issues with ventilator. Titrating pressors to maintain MAP greater than 65. Reddened areas on anterior abdomen noted at start of shift no longer visible. Dressing changed on tunneled cath, no signs of bleeding, replaced with new pressure dressing. No longer febrile.
[2020-05-09] MEDS ORDERED: VANCOMYCIN LEVEL IV SCH (03:00)
[2020-05-09] MEDS: albuterol 2.5 MG/3 ML nebule NEB SCH ×3 (03:06→11:17)
[2020-05-09 03:21] LABS: ABG BASE EXCESS -19.1 mmol/L (-2.0-2.0); ABG HCO3 8.9 mmol/L (22.0-26.0); ABG OXYGEN SATURATION 94.9 % (94-97); ABG PCO2 (T) 29.3 mmHg (35.0-48.0); ABG PO2 (T) 99.1 mmHg (75.0-100.0); FCOHb 0.3 % (0.0-3.9); FMetHb 0.6 % (0.0-1.5); PATIENT TEMPERATURE 37.5; PEEP 5 cm H2O; RESPIRATORY RATE 20 b/min; TIDAL VOLUME 550 mL; TOTAL HEMOGLOBIN 8.5 G/dl (14.0-18.0)
[2020-05-09] MEDS: midazolam 100mg in NS 100ml 100 ML IV PRN ×2 (03:22→09:18)
[2020-05-09] MEDS: dexmedetomidine inj. 400 MCG in dextrose 5%-water 100 ML IV SCH (03:23)
[2020-05-09 03:53] LABS: ALANINE AMINOTRANSFERASE 68 U/L (12-78); ALBUMIN 0.9 G/DL (3.4-5.0); ALBUMIN/GLOBULIN RATIO 0.5 (1.1-1.5); ALKALINE PHOSPHATASE 117 IU/L (46-116); ANION GAP 24 (8-16); ASPARTATE AMINO TRANSFERASE 107 U/L (10-37); BLOOD UREA NITROGEN 62 MG/DL (7-18); BUN/CREATININE RATIO 11.7 (5.4-32.0); CALCIUM 6.9 MG/DL (8.5-10.1); CHLORIDE 100 MMOL/L (99-107); CREATINE KINASE 450 U/L (39-308); CREATININE 5.31 MG/DL (0.60-1.10); GLUCOSE 85 MG/DL (70-104); MAGNESIUM 1.7 MG/DL (1.5-2.4); PHOSPHORUS 8.8 MG/DL (2.3-4.5); POTASSIUM 4.9 MMOL/L (3.5-5.1); SODIUM 134 MMOL/L (135-145); TOTAL PROTEIN 2.9 G/DL (6.4-8.2); VANCOMYCIN,RANDOM 8.9 UG/ML; eGFR 12 ML/MIN
[2020-05-09 03:59] LABS: TOTAL CARBON DIOXIDE 9.9 MMOL/L (24-32)
[2020-05-09 04:04] LABS: PARTIAL THROMBOPLASTIN TIME 115 SECONDS (22-32)
[2020-05-09 04:07] LABS: HEMOGLOBIN 7.9 g/dl (14.0-17.9)
[2020-05-09 04:08] LABS: HEMATOCRIT 23.8 % (42.0-52.0); MEAN CORPUSCULAR HEMOGLOBIN 32.1 PG (27.0-31.0); MEAN CORPUSCULAR VOLUME 97.3 FL (78-98); MEAN PLATELET VOLUME 8.2 FL (7.4-10.4); RED BLOOD COUNT 2.45 X10'6 (4.70-6.10); RED CELL DISTRIBUTION WIDTH 17.4 % (11.5-14.5); WHITE BLOOD COUNT 5.4 X10'3 (4.5-11.0)
[2020-05-09 04:15] LABS: PLATELET COUNT 9 X10'3 (140-440)
--- NOTE | 2020-05-09 04:24 | NUR ---
Oli updated on latest labs, including critical values. Orders received.
--- NOTE | 2020-05-09 06:25 | NUR ---
Problems reprioritized. Patient report given, questions answered & plan of care reviewed with Laine MAURICE. .
--- NOTE | 2020-05-09 06:32 | NUR ---
Patient in room CICU 2013. I have received report from Lori MAURICE and had the opportunity to ask questions and assume patient care.
[2020-05-09] MEDS ORDERED: vancomycin/NS 1 GM ADD-VANTAGE 250 ML IV ONE (07:00)
[2020-05-09 07:56] LABS: NUCLEATED RED BLOOD CELLS 2 /100WBC (0-0); TOTAL CELLS COUNTED 100
[2020-05-09 07:57] LABS: PLATELET ESTIMATE DECREASED
[2020-05-09 07:58] LABS: ANISOCYTOSIS 1+; TOXIC VACUOLATION 1+
[2020-05-09 09:23] LABS: HEMATOCRIT 22.4 % (42.0-52.0); HEMOGLOBIN 7.6 g/dl (14.0-17.9); MEAN CORPUSCULAR HEMOGLOBIN 33.3 PG (27.0-31.0); MEAN CORPUSCULAR HGB CONC 33.8 g/dL (33.0-36.5); MEAN CORPUSCULAR VOLUME 98.5 FL (78-98); MEAN PLATELET VOLUME 9.6 FL (7.4-10.4); RED BLOOD COUNT 2.27 X10'6 (4.70-6.10); RED CELL DISTRIBUTION WIDTH 17.6 % (11.5-14.5)
[2020-05-09 09:26] LABS: PLATELET COUNT 5 X10'3 (140-440)
--- NOTE | 2020-05-09 09:50 | NUR ---
Dr. Edgar spoke to Marianela () over phone and explained situation regarding mottling to bilateral legs, levophed demand increasing as well as overall prognosis. Marianela verbalized understanding and stated that she was going to come in with her daughter soon to make final decisions.
--- NOTE | 2020-05-09 10:40 | NUR ---
Called Marianela () to update her to patient's declining condition. Per nursing fitting room supervisor, OK if patient's comes in with her daughter. Per Marianela, they're trying to arrange child support investigator so they can make it to patient's bedside.
--- NOTE | 2020-05-09 12:09 | NUR ---
1200 blood glucose was 47; reinitiated D50 gtt at 50ml/hr and bolused 50mL off of the IV pump to correct initial low BG. Will recheck at 1225 per protocol.
--- NOTE | 2020-05-09 12:44 | NUR ---
Changes noted on patient's EKG; currently trying to convert into AFib
[2020-05-09] MEDS ORDERED: morphine 10mg/ml inj. IV PRN (13:55)
[2020-05-09] MEDS ORDERED: LORazepam 2 mg/ml vial IV PRN (13:55)
--- NOTE | 2020-05-09 14:07 | NUR ---
Patient extubated to comfort care at 1405; family at bedside
--- NOTE | 2020-05-09 14:16 | NUR ---
Extubated at 1405, all drips turned off, patient at 1411, family at bedside.
--- NOTE | 2020-05-09 15:41 | NUR ---
Patient released to [facility] in [place]. Patient's belongings were released to family earlier today. No belongings left at bedside.
== END 2020-05-09 15:28 | disposition expired | DRG 720 ==
LOC: ER 16:53 → ED HOLD 18:39 → UNDOADMIN 18:47 → ED HOLD 18:47 → CICU 2S 20:45
PROVIDERS: ADMIT Internal Medicine Critical Care Medicine; ATTEND Internal Medicine Critical Care Medicine
PROC: 5A1955Z Respiratory Ventilation, Greater than 96 Consecutive Hours (ICD-10-PCS; 2020-04-20)
PROC: 0BH17EZ Insertion of Endotracheal Airway into Trachea, Via Natural or Artificial Opening (ICD-10-PCS; 2020-04-20)
PROC: 06HM33Z Insertion of Infusion Device into Right Femoral Vein, Percutaneous Approach (ICD-10-PCS; principal; 2020-04-22)
PROC: 4A00X4Z Measurement of Central Nervous Electrical Activity, External Approach (ICD-10-PCS; 2020-04-22)
PROC: 5A1D70Z Performance of Urinary Filtration, Intermittent, Less than 6 Hours Per Day (ICD-10-PCS; 2020-04-22)
PROC: 5A1D70Z Performance of Urinary Filtration, Intermittent, Less than 6 Hours Per Day (ICD-10-PCS; 2020-04-24)
PROC: 5A1D70Z Performance of Urinary Filtration, Intermittent, Less than 6 Hours Per Day (ICD-10-PCS; 2020-04-26)
PROC: 5A1D70Z Performance of Urinary Filtration, Intermittent, Less than 6 Hours Per Day (ICD-10-PCS; 2020-04-29)
PROC: 5A1D70Z Performance of Urinary Filtration, Intermittent, Less than 6 Hours Per Day (ICD-10-PCS; 2020-05-02)
PROC: 4A00X4Z Measurement of Central Nervous Electrical Activity, External Approach (ICD-10-PCS; 2020-05-04)
PROC: 5A1D70Z Performance of Urinary Filtration, Intermittent, Less than 6 Hours Per Day (ICD-10-PCS; 2020-05-04)
PROC: 5A1D70Z Performance of Urinary Filtration, Intermittent, Less than 6 Hours Per Day (ICD-10-PCS; 2020-05-05)
PROC: 0DJ08ZZ Inspection of Upper Intestinal Tract, Via Natural or Artificial Opening Endoscopic (ICD-10-PCS; 2020-05-08)
PROC: 30233L1 Transfusion of Nonautologous Fresh Plasma into Peripheral Vein, Percutaneous Approach (ICD-10-PCS; 2020-05-08)
PROC: 30233N1 Transfusion of Nonautologous Red Blood Cells into Peripheral Vein, Percutaneous Approach (ICD-10-PCS; 2020-05-08)
PROC: 5A1945Z Respiratory Ventilation, 24-96 Consecutive Hours (ICD-10-PCS; 2020-05-08)
PROC: 5A1D70Z Performance of Urinary Filtration, Intermittent, Less than 6 Hours Per Day (ICD-10-PCS; 2020-05-08)
PROC: 30233R1 Transfusion of Nonautologous Platelets into Peripheral Vein, Percutaneous Approach (ICD-10-PCS; 2020-05-09)
DX: A41.9 Sepsis, unspecified organism (principal); E86.0 Dehydration; E87.2 Acidosis; E87.5 Hyperkalemia; F15.129 Other stimulant abuse with intoxication, unspecified; G93.40 Encephalopathy, unspecified; I21.4 Non-ST elevation (NSTEMI) myocardial infarction; J96.01 Acute respiratory failure with hypoxia; K29.70 Gastritis, unspecified, without bleeding; K29.80 Duodenitis without bleeding; K55.069 Acute infarction of intestine, part and extent unspecified; N17.9 Acute kidney failure, unspecified; R57.0 Cardiogenic shock; R64 Cachexia; R65.21 Severe sepsis with septic shock; M62.82 Rhabdomyolysis; Z66 Do not resuscitate; T88.4XXA Failed or difficult intubation, initial encounter; Y92.009 Unspecified place in unspecified non-institutional (private) residence as the place of occurrence of the external cause; Z20.828 Contact with and (suspected) exposure to other viral communicable diseases
CPT/HCPCS: 36415; 36430; 36558; 36600; 43235; 70450; 70551; 71045; 71250; 74018; 74176; 76937; 77001; 80048; 80053; 80202; 80305; 80320; 81001; 82140; 82150; 82550; 82803; 82810; 82948; 83605; 83690; 83721; 83735; 83874; 84100; 84134; 84145; 84443; 84484; 85018; 85025; 85027; 85379; 85384; 85610; 85730; 86885; 86900; 86901; 86920; 87040; 87070; 87077; 87081; 87088; 87186; 87340; 87635; 92508; 93005; 93306; 94002; 94003; 94640; 94760; 95816; 99291; 99292; C1750; C1769; C1894; C9113; G0378; J0131; J0171; J1644; J1720; J1956; J2060; J2150; J2185; J2212; J2250; J2270; J2543; J2597; J2765; J2997; J3010; J3370; J3430; J3490; J7030; J7042; J7050; J7060; P9016; P9035; P9047; P9059; Q0161; Q4081